=== PATIENT | female | born 1945 | race Caucasian/White ===

== ENCOUNTER 2017-09-27 11:55 | Outpatient (CLI) | payer MEDICARE, OTHER ==
--- NOTE | 2017-09-28 15:34 | Mammography Report ---
DATE OF SERVICE: 09/27/2017 DIGITAL SCREENING MAMMOGRAM: 09/27/2017 CLINICAL INDICATION: A 71-year-old with history of late childbearing, for screening. COMPARISON: 09/2012, 09/2008, 07/2007. TECHNIQUE: Routine CC and MLO projections were obtained of the breasts. FINDINGS: The breasts demonstrate heterogeneously dense fibroglandular parenchyma bilaterally. Coarse and punctate, typically benign calcifications are present. No suspicious masses, clustered microcalcifications, or regions of architectural distortion are identified. IMPRESSION: BENIGN FINDINGS. RECOMMENDATION: ROUTINE ANNUAL SCREENING UNLESS OTHERWISE CLINICALLY INDICATED. BIRADS CATEGORY 2-BENIGN FINDINGS. STANDARD QUALIFYING STATEMENTS: 1. This examination was reviewed with the aid of Computer-Aided Detection (CAD). 2. A negative or benign imaging report should not delay biopsy if clinically suspicious findings are present. Consider surgical consultation if warranted. More than 5% of cancers are not identified by imaging. 3. Dense breasts may obscure an underlying neoplasm. TD: 09/28/2017 16:33
== END 2017-09-27 11:56 | disposition home or self-care (01) ==
LOC: DI.N 11:55
PROVIDERS: ATTEND Nurse Practitioner Gerontology
DX: Z12.31 Encounter for screening mammogram for malignant neoplasm of breast (principal)
CPT/HCPCS: 77067

== ENCOUNTER 2017-11-07 14:56 | Outpatient (CLI) | payer MEDICARE, OTHER | END 2017-11-07 14:57 | disposition EMS.NT | LOC: EMS 14:56 | PROVIDERS: ATTEND Surgery | DX: R41.82 Altered mental status, unspecified (principal); Z72.89 Other problems related to lifestyle ==

== ENCOUNTER 2018-04-25 10:03 | Outpatient (CLI) | payer MEDICARE, OTHER ==
--- NOTE | 2018-04-25 13:21 | Ultrasound Report ---
Procedure Date: 04/25/2018 Accession Number: [id number] / [id number] Procedure: US - Pelvic w/Transvaginal CPT Code: FULL RESULT: EXAM: Pelvic w/Transvaginal DATE: 04/25/2018 11:11 AM CLINICAL HISTORY: ABDOMINAL PAIN,LOWER COMPARISON: None. TECHNIQUE: Realtime transabdominal imaging of the pelvis, with static image documentation. FINDINGS: The examination is limited by the patient's inability to tolerate transvaginal examination. Uterus: 7.5 x 4.3 x 3.2 cm in anteverted position. Multiple calcified fibroids are noted measuring up to 1.6 cm. Endometrium: 5 mm. Cervix: Unremarkable. Right Ovary/Adnexa: 3.1 x 1.8 x 1.8 cm, volume 5 cc. Normal echotexture. Blood flow is present. A 2.7 x 1.6 cm simple appearing cyst is seen associated with the ovary. Left Ovary/Adnexa: 1.8 x 1.8 x 1.0 cm, volume 1.7 cc. Normal echotexture. Blood flow is present. A 1.1 cm simple appearing cyst is seen associated with the ovary. Free Fluid: None. Other: None. IMPRESSION: Simple appearing adnexal cysts measuring up to 2.7 cm. Considered likely to be benign. Recommend annual follow-up to resolution. RADIA
== END 2018-04-25 10:04 | disposition home or self-care (01) ==
LOC: DI 10:03
PROVIDERS: ATTEND Nurse Practitioner Gerontology
DX: N83.292 Other ovarian cyst, left side (principal); N83.291 Other ovarian cyst, right side
CPT/HCPCS: 76830; 76856

== ENCOUNTER 2018-07-11 17:46 | Outpatient (CLI) | payer MEDICARE, OTHER | END 2018-07-11 17:47 | disposition critical access hospital (66) | LOC: EMS 17:46 | PROVIDERS: ATTEND Surgery | DX: R60.0 Localized edema (principal) | CPT/HCPCS: A0425; A0427 ==

== ENCOUNTER 2018-07-11 18:04 | Emergency (ER) | payer MEDICARE, OTHER ==
--- NOTE | 2018-07-11 18:10 | ED Physician Documentation ---
History of Present Illness - Stated complaint Stated Complaint: FACIAL SWELLING - History obtained from History obtained from: Patient - History of Present Illness Timing: Today (72-year-old woman started lisinopril about a week ago, is her fi rst antihypertensive. Today developed left-sided upper and lower lip swelling without retropharyngeal symptoms or shortness of breath.) Review of Systems Constitutional: reports: Reviewed and negative Cardiac: denies: Chest pain / pressure, Palpitations Respiratory: denies: Dyspnea, Cough PD PAST MEDICAL HISTORY - Present Medications Home Medications: Ambulatory Orders Medication Instructions Recorded Confirmed FLUoxetine [PROzac] 40 mg PO DAILY 03/02/13 09/26/14 FLUoxetine [PROzac] 40 mg PO DAILY 07/22/13 09/26/14 Pravastatin Sodium 40 mg PO DAILY 07/22/13 09/26/14 hydroCHLOROthiazide [Hydrodiuril] 12.5 mg PO DAILY #30 capsule 07/11/18 - Allergies Allergies/Adverse Reactions: Allergies Allergy/AdvReac Type Severity Reaction Status Date / Time naproxen sodium * Allergy Mild Rash Verified 07/11/18 18:13 [From Aleve] lisinopril Allergy Edema Verified 07/11/18 18:13 PD ED PE NORMAL - Vitals Vital signs reviewed: Yes - General General: Alert and oriented X 3, No acute distress - HEENT HEENT: PERRL, EOMI, Other (She has marked angioedema of the upper and lower lips on the left side without glossal or retropharyngeal or edema. The airway is wide open and her voice is normal.) - Neck Neck: Supple, no meningeal sign, No bony TTP - Respiratory Respiratory: No respiratory distress, Clear bilaterally - Neuro Neuro: Alert and oriented X 3, Normal speech Results - Vitals Vitals: Vital Signs - 24 hr 07/11/18 07/11/18 07/11/18 18:05 18:15 19:00 Temperature 37.3 C Heart Rate 86 88 88 Respiratory 16 13 15 Rate Blood Pressure 113/82 H 115/98 H O2 Saturation 99 100 97 07/11/18 20:24 Temperature Heart Rate 75 Respiratory 16 Rate Blood Pressure 140/89 H O2 Saturation 98 Oxygen O2 Source [Without Activity] Room air O2 Source Room air - Labs Labs: Laboratory Tests 07/11/18 19:40 Sodium 138 Potassium 4.3 Chloride 99 L Carbon Dioxide 29 Anion Gap 10.0 BUN 19 Creatinine 0.9 Estimated GFR (MDRD) 61 L Glucose 99 Calcium 9.1 PD MEDICAL DECISION MAKING - ED course ED course: 72-year-old woman presents with REAHN inhibitor induced angioedema which is all anterior without retropharyngeal or glossal component. She was observed for several hours with slight improvement and definitely no worsening. 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 Follow-up with your doctor in a few days for recheck and blood pressure check on the new medication.
[2018-07-11 19:55] LABS: CALCIUM 9.1 mg/dL (8.5-10.3); CREATININE 0.9 mg/dL (0.4-1.0)
[2018-07-11 20:37] VITALS: BP 137/86
== END 2018-07-11 20:50 | disposition home or self-care (01) ==
LOC: EDUNIT# → ED 18:04
DX: T78.3XXA Angioneurotic edema, initial encounter (principal); T46.4X5A Adverse effect of angiotensin-converting-enzyme inhibitors, initial encounter
CPT/HCPCS: 36415; 80048; 99283

== ENCOUNTER 2018-07-12 08:56 | Emergency (ER) | payer MEDICARE, OTHER ==
[2018-07-12] MEDS ORDERED: DEXAMETHASONE 10 MG/ML VIAL IV STA (09:26)
[2018-07-12] MEDS ORDERED: FAMOTIDINE 20 MG/50 ML 50 ML IV ONE (09:33)
[2018-07-12] MEDS ORDERED: diphenhydrAMINE INJ 50 MG/ML VIAL IVP STA (09:33)
[2018-07-12] MEDS ORDERED: LORATADINE 10 MG TABLET PO STA (09:40)
--- NOTE | 2018-07-12 09:58 | ED Physician Documentation ---
History of Present Illness - Stated complaint Stated Complaint: ALLERGIC REACTION - Chief complaint Chief Complaint: General - Additonal information Additional information: hx from pt 72 f started lisinopril this week to ED yesterday for angioedema txed with benadryl and steroids obs X 3 hr not worsening no airway involvement dc with new BP med HCTZ her sx are slightly worse today only other possible allergen she can ID is shrimp no soa no CP no GI sx no rash Review of Systems Constitutional: denies: Fever Throat: reports: Other (lip swell). denies: Sore throat Cardiac: denies: Chest pain / pressure GI: denies: Abdominal Pain, Nausea, Vomiting, Diarrhea Skin: denies: Rash Endocrine: denies: Easy bruising / bleeding Immunocompromised: denies: Immunocompromised PD PAST MEDICAL HISTORY - Past Medical History Cardiovascular: None Respiratory: None Endocrine/Autoimmune: None GI: None : None HEENT: None Psych: Depression Musculoskeletal: None, Scoliosis, Chronic back pain Derm: None - Past Surgical History Past Surgical History: Yes General: Cholecystectomy Ortho: Hip replacement - Present Medications Home Medications: Ambulatory Orders Medication Instructions Recorded Confirmed FLUoxetine [PROzac] 40 mg PO DAILY 03/02/13 09/26/14 FLUoxetine [PROzac] 40 mg PO DAILY 07/22/13 09/26/14 Pravastatin Sodium 40 mg PO DAILY 07/22/13 09/26/14 hydroCHLOROthiazide [Hydrodiuril] 12.5 mg PO DAILY #30 capsule 07/11/18 Loratadine [Claritin] 10 mg PO DAILY #3 tablet 07/12/18 predniSONE [Deltasone] 60 mg PO DAILY 3 Days #9 tablet 07/12/18 raNITIdine [Zantac] 150 mg PO BID #7 tablet 07/12/18 - Allergies Allergies/Adverse Reactions: Allergies Allergy/AdvReac Type Severity Reaction Status Date / Time naproxen sodium * Allergy Mild Rash Verified 07/11/18 18:13 [From Parminder] lisinopril Allergy Edema Verified 07/11/18 18:13 - Social History Does the pt smoke?: No Smoking Status: Never smoker Does the pt drink ETOH?: Yes Does the pt have substance abuse?: No - Immunizations Immunizations are current?: No - POLST Patient has POLST: No PD ED PE NORMAL - Vitals Vital signs reviewed: Yes - HEENT HEENT: Other (lipds and perioral region swollne, no tongue or uvula or neck swelling) - Neck Neck: Supple, no meningeal sign - Cardiac Cardiac: RRR - Respiratory Respiratory: No respiratory distress, Clear bilaterally, Other (no wheeze or stridor) - Derm Derm: Normal color, No rash - Neuro Neuro: Alert and oriented X 3 Results - Vitals Vitals: Vital Signs - 24 hr 07/12/18 07/12/18 08:58 10:30 Temperature 36.9 C Heart Rate 89 87 Respiratory 18 15 Rate Blood Pressure 152/104 H 136/85 H O2 Saturation 98 99 Oxygen O2 Source [Without Activity] Room air O2 Source Room air PD MEDICAL DECISION MAKING - ED course ED course: pt observed 2-3 hr and much much better after dex, pepcid and claritin only mild lip swelling now will dc n PO prednisone claritin and zantac X 3 more days Departure - Departure Disposition: 01 Home, Self Care Clinical Impression: Angioedema Qualifiers: Encounter type: initial encounter Qualified Code(s): T78.3XXA - Angioneurotic edema, initial encounter Condition: Good Instructions: ED Angioedema Follow-Up: Hallie Sims ARNP [Primary Care Provider] - Prescriptions: Loratadine [Claritin] 10 mg PO DAILY #3 tablet predniSONE [Deltasone] 60 mg PO DAILY 3 Days #9 tablet raNITIdine [Zantac] 150 mg PO BID #7 tablet Comments: The most likely cause of your allergic reaction is the lisinopril But it could have been the shrimp or any other food soap detergent insect bite etc. Stop the lisinopril and consider yourself allergic to all REHAN inhibitors and angiotensin receptor blockers If you ever have similar symptoms again after stopping these medications, you should be evaluated by an scrap burner to identify the cause Please take the prednisone claritin and zantac for the next three days - next dose of zantac tonight, prednisone and claritin tomorrow morning Of course return if your symptoms get worse again Forms: Activity restrictions
[2018-07-12 16:10] VITALS: BP 135/95
== END 2018-07-12 12:05 | disposition home or self-care (01) ==
LOC: ED 08:56
DX: T78.3XXA Angioneurotic edema, initial encounter (principal); R22.9 Localized swelling, mass and lump, unspecified; Z96.649 Presence of unspecified artificial hip joint
CPT/HCPCS: 96365; 99283; A9270

== ENCOUNTER 2018-07-18 07:16 | Outpatient (CLI) | payer MEDICARE, OTHER ==
[2018-07-18 12:56] LABS: BASOPHILS % (AUTO) 0.6 %; EOSINOPHILS # (AUTO) 0.1 10^3/uL (0.0-0.7); EOSINOPHILS % (AUTO) 1.9 %; HGB - HEMOGLOBIN 12.2 g/dL (12.0-16.0); LYMPHOCYTES # (AUTO) 1.4 10^3/uL (1.5-3.5); LYMPHOCYTES % (AUTO) 26.1 %; MEAN CORPUSCULAR HEMOGLOBIN 33.3 pg (27.0-31.0); MEAN CORPUSCULAR HGB CONC 33.7 g/dL (32.0-36.0); MEAN CORPUSCULAR VOLUME 98.7 fL (81.0-99.0); NEUTROPHILS # (AUTO) 2.7 10^3/uL (1.5-6.6); NEUTROPHILS % (AUTO) 52.4 %; PLT - PLATELET COUNT 274 10^3/uL (130-450); RED BLOOD COUNT 3.67 10^6/uL (4.20-5.40); RED CELL DISTRIBUTION WIDTH 14.1 % (12.0-15.0); WHITE BLOOD COUNT 5.2 x10^3/uL (4.8-10.8)
[2018-07-18 13:24] LABS: ALBUMIN 4.2 g/dL (3.2-5.5); ALBUMIN/GLOBULIN RATIO 1.3 (1.0-2.2); ALKALINE PHOSPHATASE 51 IU/L (42-121); ALT ALANINE AMINOTRANSFERASE 19 IU/L (10-60); AST ASPARTATE AMINOTRANSFERASE 15 IU/L (10-42); BILIRUBIN,TOTAL 0.8 mg/dL (0.2-1.0); BUN - BLOOD UREA NITROGEN 21 mg/dL (6-20); CALCIUM 9.3 mg/dL (8.5-10.3); CARBON DIOXIDE - CO2 30 mmol/L (21-32); CHLORIDE 100 mmol/L (101-111); CHOL/HDL RATIO 2.5 (<4.4); CHOLESTEROL 208 mg/dL; CREATININE 0.6 mg/dL (0.4-1.0); GFR - MDRD 98 (>89); GLUCOSE 82 mg/dL (70-100); HDL CHOLESTEROL 83 mg/dL; LDL CHOLESTEROL,CALCULATED 108 mg/dL; LDL/HDL RATIO 1.3 (<4.4); SODIUM 141 mmol/L (135-145); TOTAL PROTEIN 7.4 g/dL (6.7-8.2); VLDL CHOLESTEROL 17 mg/dL
== END 2018-07-18 07:17 | disposition home or self-care (01) ==
LOC: LAB.N 07:16
PROVIDERS: ATTEND Nurse Practitioner Gerontology
DX: I10 Essential (primary) hypertension (principal); E78.5 Hyperlipidemia, unspecified; Z79.899 Other long term (current) drug therapy
CPT/HCPCS: 36415; 80053; 80061; 83721; 85025

== ENCOUNTER 2018-08-22 14:38 | Observation (INO) | payer MEDICARE, OTHER ==
--- NOTE | 2018-08-22 14:49 | ED Physician Documentation ---
History of Present Illness - Stated complaint Stated Complaint: GLF - Chief complaint Chief Complaint: Ext Problem - Additonal information Additional information: hx from pt 72 f slipped and fell in kitchen (EMS states they see her often for falls and that she drinks wine) Review of Systems Constitutional: denies: Fever Cardiac: denies: Chest pain / pressure Respiratory: denies: Dyspnea, Cough GI: denies: Abdominal Pain, Vomiting, Diarrhea : denies: Dysuria Musculoskeletal: reports: Joint pain. denies: Neck pain Neurologic: denies: Headache, Head injury Endocrine: denies: Easy bruising / bleeding Immunocompromised: denies: Immunocompromised PD PAST MEDICAL HISTORY - Past Medical History Cardiovascular: None Respiratory: None Endocrine/Autoimmune: None GI: None : None HEENT: None Psych: Depression Musculoskeletal: None, Scoliosis, Chronic back pain Derm: None - Past Surgical History Past Surgical History: Yes General: Cholecystectomy Ortho: Hip replacement - Present Medications Home Medications: Ambulatory Orders Medication Instructions Recorded Confirmed FLUoxetine [PROzac] 40 mg PO DAILY 07/22/13 09/26/14 Pravastatin Sodium 40 mg PO DAILY 07/22/13 09/26/14 hydroCHLOROthiazide [Hydrodiuril] 12.5 mg PO DAILY #30 capsule 07/11/18 Sucralfate [Carafate] 1 gm PO ACHS #120 tablet 08/22/18 raNITIdine [Zantac] 150 mg PO BID #60 tablet 08/22/18 - Allergies Allergies/Adverse Reactions: Allergies Allergy/AdvReac Type Severity Reaction Status Date / Time naproxen sodium * Allergy Mild Rash Verified 07/11/18 18:13 [From Aleve] REHAN Inhibitors Allergy Edema Verified 08/22/18 14:45 lisinopril Allergy Edema Verified 07/11/18 18:13 - Social History Does the pt smoke?: No Smoking Status: Never smoker Does the pt drink ETOH?: Yes Does the pt have substance abuse?: No - Immunizations Immunizations are current?: No - POLST Patient has POLST: No PD ED PE NORMAL - Vitals Vital signs reviewed: Yes - HEENT HEENT: Atraumatic, PERRL - Neck Neck: No bony TTP - Cardiac Cardiac: RRR - Respiratory Respiratory: No respiratory distress, Clear bilaterally - Abdomen Abdomen: Non tender - Extremities Extremities: Other (TTP lateral R hip and held slightly flexed and int rotated, + pulses, nl motor and sensation) - Neuro Neuro: Alert and oriented X 3, No motor deficit, No sensory deficit Results - Vitals Vitals: Vital Signs - 24 hr 08/22/18 08/22/18 08/22/18 14:39 15:29 15:35 Temperature 37 C 36.5 C Heart Rate 95 99 92 Respiratory 20 28 H 16 Rate Blood Pressure 139/88 H 161/98 H 161/98 H O2 Saturation 97 98 97 08/22/18 08/22/18 08/22/18 15:40 15:50 15:55 Temperature Heart Rate 92 88 88 Respiratory 16 18 Rate Blood Pressure 160/88 H 156/102 H O2 Saturation 99 100 100 08/22/18 08/22/18 08/22/18 16:01 16:07 16:23 Temperature Heart Rate 86 89 90 Respiratory 18 15 12 Rate Blood Pressure 165/101 H 162/96 H O2 Saturation 100 95 98 08/22/18 08/22/18 16:24 17:25 Temperature Heart Rate 97 Respiratory 18 Rate Blood Pressure 168/95 H 143/93 H O2 Saturation 96 Oxygen O2 Source [] Room air O2 Source Room air Oxygen Flow Rate 2 - Labs Labs: Laboratory Tests 08/22/18 08/22/18 16:50 16:50 WBC 10.7 RBC 4.27 Hgb 13.7 Hct 40.7 MCV 95.4 MCH 32.1 H MCHC 33.7 RDW 13.5 Plt Count 446 MPV 8.1 Neut # (Auto) 9.3 H Lymph # (Auto) 0.8 L Stoddard # (Auto) 0.6 Eos # (Auto) 0.0 Baso # (Auto) 0.0 Absolute Nucleated RBC 0.00 Nucleated RBC % 0.0 Sodium 142 Potassium 3.3 L Chloride 101 Carbon Dioxide 30 Anion Gap 11.0 BUN 18 Creatinine 0.5 Estimated GFR (MDRD) 121 Glucose 121 H Calcium 8.6 Total Bilirubin 0.4 AST 25 ALT 22 Alkaline Phosphatase 56 Total Protein 7.6 Albumin 4.2 Globulin 3.4 Albumin/Globulin Ratio 1.2 Lipase 27 - Rads (name of study) R hip 1 Radiology: See rad report (dislocated no fx) R hip 2 Radiology: See rad report (reduced no fx) PD MEDICAL DECISION MAKING - ED course ED course: dislocated prosthetic R hip pt NPO since 11 was drinking cranberry juice and wind eand chicken fingers before that mallapati 2 on exam no dentures no contraindications to propofol consented fro both sedation and reduction sedation with morphine and propofol I attempted reduction under good sedation several times s success Dr Tobin came to assist and after a few attempts was able to successfully reduce pt felt better was planning to dc with walker toe touch wt bearing, ABD pillow for sleeping and pt has mary ellen toilet seat to prevent hip flexion, fup Dr Conrad Cuba and neighbors to watch over her tonight but then she vomited brownish fluid and nurse tested it and it was gastroccult + already had given pepcid for nausea and GERD sx prior added on blood work and more zofran all fine pt feeling better up and about with walker tolerating PO will dc Departure - Departure Disposition: 01 Home, Self Care Clinical Impression: Upper GI bleed Hip dislocation, right Qualifiers: Encounter type: initial encounter Qualified Code(s): S73.004A - Unspecified dislocation of right hip, initial encounter Condition: Good Instructions: ED Bleed UGI Stable Follow-Up: Garth Guillaume MD [Provider Admit Priv/Credential] - Hallie Sims ARNP [Primary Care Provider] - Prescriptions: raNITIdine [Zantac] 150 mg PO BID #60 tablet Sucralfate [Carafate] 1 gm PO ACHS #120 tablet Comments: The hip is back in place Please use the walker - you may ambulate with toe touch weight bearing using the walker for assistance When you sleep please use the pillow we gave you to prevent crossing your legs. And use your raised toilet seat and higher chairs in your house - sitting on low furniture will flex you hip too far and might dislocate the hip again Tylenol as needed for the pain Follow up with Dr Cuba Also you threw up some blood in the ER There are many possible causes for this - from gastritis to an ulcer or even varices which are swollen veins in your throat. Right now your blood count is fine and I think it is safe for you to go home Take the zantac and carafate as I prescribed Cut down on your alcohol use. Also no motrin or other NSAIDs and no spicy food Follow up with your MD tomorrow for a repeat blood count And call the surgeon office to set up a scope of your stomach
[2018-08-22] MEDS ORDERED: PROPOFOL 200 MG/20 ML VIAL IVP STA (15:18)
[2018-08-22] MEDS ORDERED: ONDANSETRON 4 MG/2 ML VIAL IVP STA ×2 (15:18→16:34)
[2018-08-22] MEDS ORDERED: MORPHINE 2 MG/ML CARPUJECT IVP STA ×2 (15:18→15:36)
--- NOTE | 2018-08-22 15:32 | XRAY Report ---
Reason: fall R hip pain and int rotation Procedure Date: 08/22/2018 Accession Number: [id number] / [id number] Procedure: XR - Hip w/Pelvis 2-3V RT CPT Code: FULL RESULT: EXAM: RIGHT HIP AND PELVIS RADIOGRAPHY EXAM DATE: 08/22/2018 03:12 PM. HISTORY: Fall, right hip pain and internal rotation. COMPARISONS: 03/02/2013 5:02 PM. TECHNIQUE: 1 view of the pelvis and 1 view of the hip. FINDINGS: Bones: The patient is status post bilateral hip replacement and status post spinal fusion which is incompletely visualized. No acute fractures identified. The right hip prosthesis is anterosuperiorly subluxed. IMPRESSION: Dislocated right total hip arthroplasty. RADIA
[2018-08-22] MEDS ORDERED: FAMOTIDINE 20 MG/50 ML 50 ML IV ONE (15:36)
[2018-08-22] MEDS ORDERED: MORPHINE 2 MG/ML CARPUJECT ONE (15:39)
--- NOTE | 2018-08-22 16:11 | XRAY Report ---
Reason: post reduction Procedure Date: 08/22/2018 Accession Number: [id number] / [id number] Procedure: XR - Hip w/Pelvis 1V RT CPT Code: FULL RESULT: EXAM: RIGHT HIP AND PELVIS RADIOGRAPHY EXAM DATE: 08/22/2018 04:00 PM. HISTORY: Post reduction. COMPARISONS: Hip with pelvis 2-3 views, right 08/22/2018 2:59 PM. Hip 2 view left 03/02/2013 3:54 PM. TECHNIQUE: 1 view of the pelvis and 1 view of the hip. FINDINGS: Bones: Normal. No fracture or bone lesion. Joints: Successful reduction of the prosthetic right hip dislocation. Bones are in anatomic alignment. Bilateral total hip replacements. Left third through fifth lumbar pedicle screws with intervening consuelo. Soft Tissues: Normal. No soft tissue swelling. IMPRESSION: Successful reduction prosthetic right hip. RADIA
[2018-08-22] MEDS ORDERED: ONDANSETRON 4 MG/2 ML VIAL ONE (16:36)
[2018-08-22 16:58] LABS: BASOPHILS % (AUTO) 0.3 %; HGB - HEMOGLOBIN 13.7 g/dL (12.0-16.0); LYMPHOCYTES # (AUTO) 0.8 10^3/uL (1.5-3.5); LYMPHOCYTES % (AUTO) 7.3 %; MEAN CORPUSCULAR HEMOGLOBIN 32.1 pg (27.0-31.0); MEAN CORPUSCULAR HGB CONC 33.7 g/dL (32.0-36.0); MEAN CORPUSCULAR VOLUME 95.4 fL (81.0-99.0); MEAN PLATELET VOLUME 8.1 fL (7.9-10.8); MONOCYTES # (AUTO) 0.6 10^3/uL (0.0-1.0); MONOCYTES % (AUTO) 5.4 %; NEUTROPHILS # (AUTO) 9.3 10^3/uL (1.5-6.6); PLT - PLATELET COUNT 446 10^3/uL (130-450); RED BLOOD COUNT 4.27 10^6/uL (4.20-5.40); RED CELL DISTRIBUTION WIDTH 13.5 % (12.0-15.0); WHITE BLOOD COUNT 10.7 x10^3/uL (4.8-10.8)
[2018-08-22 17:11] LABS: ALBUMIN 4.2 g/dL (3.2-5.5); ALBUMIN/GLOBULIN RATIO 1.2 (1.0-2.2); BILIRUBIN,TOTAL 0.4 mg/dL (0.2-1.0); CALCIUM 8.6 mg/dL (8.5-10.3); CREATININE 0.5 mg/dL (0.4-1.0); TOTAL PROTEIN 7.6 g/dL (6.7-8.2)
[2018-08-22] MEDS ORDERED: PROMETHAZINE INJ 25 MG in SODIUM CHLORIDE 0.9% 50 ML IV STA (18:36)
[2018-08-22] MEDS ORDERED: PROMETHAZINE INJ 12.5 MG in SODIUM CHLORIDE 0.9% 50 ML IV STA (19:09)
[2018-08-22] MEDS ORDERED: ONDANSETRON 4 MG/2 ML VIAL IVP PRN (21:25)
[2018-08-22] MEDS ORDERED: PROMETHAZINE 25 MG/1 ML VIAL IM PRN (21:25)
[2018-08-22] MEDS ORDERED: HYDROmorphone 0.5 MG/0.5 ML SYRINGE IVP PRN (21:25)
[2018-08-22] MEDS ORDERED: ACETAMINOPHEN 325 MG TABLET PO PRN (21:25)
[2018-08-22] MEDS ORDERED: ZOLPIDEM 5 MG TABLET PO PRN (21:25)
[2018-08-22] MEDS ORDERED: PROCHLORPERAZINE 10 MG/2 ML VIAL IVP PRN (21:25)
--- NOTE | 2018-08-22 22:24 | HISTORY & PHYSICAL EXAMINATION ---
Chief Complaint - Chief Complaint Chief Complaint: Intractable nausea and vomiting History of Present Illness - Admitted From Admitted From:: Emergency department - History Obtained From Records Reviewed: Emergency department History obtained from: Patient and ED physician Exam Limitations: None - History of Present Illness HPI Comment/Other: Patient is a 72-year-old female with past medical history of hyperlipidemia, hyp ertension, and apparently a remote history of an irregular heart rhythm, who is also had bilateral hip replacement surgery in the past who slipped on a slippery floor in her home today and landed on her right hip sustaining a right hip dislocation. She was able to crawl over to reach for a single dose of oxycodone that she had left over from something else. She called EMS who brought her to the emergency room for evaluation.She had a successful right hip dislocation with the assistance of propofol for sedation, and a couple doses of morphine IV.She was otherwise ready for discharge when she started to develop nausea and vomiting with some coffee-ground emesis which did not respond to 2 doses of Zofran and 2 doses of Phenergan. Because of this we were asked to admit the patient into ob servation status to evaluate the nausea and vomiting. Patient was adamant that she did not hit her head on the fall, and she did verify this with the ED physician multiple times who reported to me that she did not have any high suspicion for head trauma.Patient denies any other neurological changes such as blurry vision, headache, slurred speech, weakness, etc. 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 Neighbors help when needed. 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 - Substance History Use: Uses substance without health or social issues: Tobacco (quit 20 yrs ago, 20 pack year hx) - POLST Patient has POLST: No Meds/Allgy - Home Medications Home Medications: Ambulatory Orders Medication Instructions Recorded Confirmed FLUoxetine [PROzac] 40 mg PO DAILY 07/22/13 09/26/14 Pravastatin Sodium 40 mg PO DAILY 07/22/13 09/26/14 hydroCHLOROthiazide [Hydrodiuril] 12.5 mg PO DAILY #30 capsule 07/11/18 Sucralfate [Carafate] 1 gm PO ACHS #120 tablet 08/22/18 raNITIdine [Zantac] 150 mg PO BID #60 tablet 08/22/18 - Allergies Allergies/Adverse Reactions: Allergies Allergy/AdvReac Type Severity Reaction Status Date / Time naproxen sodium * Allergy Mild Rash Verified 07/11/18 18:13 [From Aleve] REHAN Inhibitors Allergy Edema Verified 08/22/18 14:45 lisinopril Allergy Edema Verified 07/11/18 18:13 Review of Systems - Constitutional Constitutional: denies: Fatigue, Chills - Eyes Eyes: denies: Blurred vision - Cardiovascular Cariovascular: reports: Irregular heart rate. denies: Chest pain, Lightheadedness, Syncope, Exertional dyspnea, Orthopnea - Respiratory Respiratory: denies: SOB at rest - Gastrointestinal Gastrointestinal: reports: Abdominal pain, Nausea, Vomiting, Coffee grounds emesis - Genitourinary Genitourinary: denies: Dysuria - Musculoskeletal Musculoskeletal: reports: Limited range of motion, Joint pain - Neurological Neurological: reports: Headache, Dizziness - Psychiatric Psychiatric: reports: Depression Prior Level of Functionality: Independent Exam - Vital Signs Reviewed Vital Signs: Yes Vital Signs: Vital Signs x48h Temp Pulse Resp BP Pulse Ox 08/22/18 17:25 97 18 143/93 H 96 08/22/18 16:24 168/95 H 08/22/18 16:23 90 12 98 08/22/18 16:07 89 15 162/96 H 95 08/22/18 16:01 86 18 165/101 H 100 08/22/18 15:55 88 18 156/102 H 100 08/22/18 15:50 88 100 08/22/18 15:40 92 16 160/88 H 99 08/22/18 15:35 36.5 C 92 16 161/98 H 97 08/22/18 15:29 99 28 H 161/98 H 98 08/22/18 14:39 37 C 95 20 139/88 H 97 Vital Signs - 24 hr 08/22/18 08/22/18 08/22/18 14:39 15:29 15:35 Temperature 37 C 36.5 C Heart Rate 95 99 92 Heart Rate [ Brachial] Respiratory 20 28 H 16 Rate Blood Pressure 139/88 H 161/98 H 161/98 H Blood Pressure [Right Brachial artery] O2 Saturation 97 98 97 08/22/18 08/22/18 08/22/18 15:40 15:50 15:55 Temperature Heart Rate 92 88 88 Heart Rate [ Brachial] Respiratory 16 18 Rate Blood Pressure 160/88 H 156/102 H Blood Pressure [Right Brachial artery] O2 Saturation 99 100 100 08/22/18 08/22/18 08/22/18 16:01 16:07 16:23 Temperature Heart Rate 86 89 90 Heart Rate [ Brachial] Respiratory 18 15 12 Rate Blood Pressure 165/101 H 162/96 H Blood Pressure [Right Brachial artery] O2 Saturation 100 95 98 08/22/18 08/22/18 08/22/18 16:24 17:25 21:52 Temperature 36.6 C Heart Rate 97 Heart Rate [ 105 H Brachial] Respiratory 18 20 Rate Blood Pressure 168/95 H 143/93 H Blood Pressure 150/110 H [Right Brachial artery] O2 Saturation 96 99 08/22/18 22:40 Temperature Heart Rate Heart Rate [ Brachial] Respiratory Rate Blood Pressure Blood Pressure 167/99 H [Right Brachial artery] O2 Saturation Oxygen O2 Source [Without Activity] Room air O2 Source Room air Oxygen Flow Rate 2 - Physical Exam Cardiovascular: positive: Irregularly irregular Conclusion/Plan - Problem List (1) Intractable nausea and vomiting Conclusion/Plan: This is likely secondary to medications given the amount of narcotics and sedating medications required for the pain control and the hip reduction. Her labs are unremarkable. Abdominal imaging has not been performed however, and she is complaining of generalized abdominal pain which is probably just related to the vomiting. I did order an ultrasound of the abdomen for tomorrow morning and if she is still having abdominal pain by then I think an ultrasound is warranted otherwise I do not see a reason for it emergently overnight. In the meantime we will maintain fluid hydration, provide antiemetics, and expect with washout of narcotics and sedating medication that this should improve and patient will likely be able to discharge home tomorrow. Did have a irregular irregular rhythm on exam for me that apparently was not present at the time of the initial exam by ED physician. I will get an echocardiogram in the morning tomorrow and follow-up accordingly. (2) Coffee ground emesis Conclusion/Plan: Likely related to the patient's regular alcohol consumption. Possible esophageal varices, less likely Evelyn-Salguero tear. Given that she is clinically stable with a normal hemoglobin and hematocrit with only mild tachycardia which is likely related to the dehydration from the vomiting, I do not think she needs an urgent EGD and depending on how she does in the morning may warrant a consult with surgery for EGD versus recommendation for outpatient EGD if emesis has resolved. In the meantime I will keep the patient n.p.o. after midnight in case the EGD is needed. (3) Hip dislocation, right Conclusion/Plan: Successful reduction in the emergency room with discharge instructions in the patient's chart. We will try to avoid narcotics as much as possible for pain control. Qualifiers: Encounter type: initial encounter Qualified Code(s): S73.004A - Unspecified dislocation of right hip, initial encounter (4) Alcohol abuse Conclusion/Plan: Patient states about 3 drinks of alcohol per night which are glasses of wine and denies any other hard liquor of alcohol products. She is potentially at risk for withdrawal symptoms however right now she is relatively lethargic on exam, and other than the tachycardia which is likely related to dehydration is not showing any evidence of alcohol withdrawal. We will watch closely and if necessary Isai protocol can be initiated but it is likely she will be discharged before this. - Lab Results Lab results reviewed: Yes Pedro Pablo Bones: 08/22/18 16:50 08/22/18 16:50 - Diagnostic Imaging Results Diagnostic Imaging Results: positive: Final report reviewed - EKG Results EKG Interpreted Independently: Yes EKG Comparison: No prior EKG Core Measures - Anticipated LOS I expect patient to be DC'd or transferred within 96 hours.: Yes - DVT/VTE - Prophylaxis VTE/DVT Device ordered at admit?: Yes
[2018-08-22] MEDS: LACTATED RINGERS 1,000 ML IV SCH (22:59)
[2018-08-23] MEDS: SODIUM CHLORIDE FLUSH 0.9% 10 ML SYRINGE IVP SCH ×3 (00:40→17:44)
[2018-08-23 02:21] LABS: BILIRUBIN,URINE NEGATIVE (NEGATIVE); GLUCOSE, URINE (UA) NEGATIVE (NEGATIVE); KETONES,URINE (UA) NEGATIVE (NEGATIVE); LEUKOCYTE ESTERASE, URINE NEGATIVE (NEGATIVE); NITRITE,URINE POSITIVE (NEGATIVE); OCCULT BLOOD,URINE TRACE-INTA (NEGATIVE); PROTEIN,URINE TRACE mg/dL (NEGATIVE); UROBILINOGEN,URINE 0.2 (NORMAL) E.U./dL (NORMAL)
[2018-08-23 02:23] LABS: CLARITY,URINE HAZY (CLEAR)
[2018-08-23 02:27] LABS: BACTERIA,URINE Many /HPF (None Seen); RBC,URINE 0-5 /HPF (0-5); SQUAMOUS EPITHELIAL CELL,UR FEW Squamous (<= Few)
--- NOTE | 2018-08-23 02:45 | Ultrasound Report ---
Reason: abdominal pain Procedure Date: 08/23/2018 Accession Number: [id number] / [id number] Procedure: US - Abdomen Complete CPT Code: FULL RESULT: EXAM: ABDOMEN ULTRASOUND EXAM DATE: 08/23/2018 01:35 AM. CLINICAL HISTORY: Abdominal pain. COMPARISON: None. TECHNIQUE: Real-time scanning was performed with static images obtained. FINDINGS: Patient body habitus compromises exam sensitivity and specificity. Liver: Normal in size and echotexture as visualized. 15.7 cm. Main portal vein flow: Hepatopetal. Gallbladder: Normal. No stones, wall thickening, or sonographic Mckeon's sign. Biliary System: Common bile duct measures 4.0-5.0 mm. No intrahepatic or extrahepatic ductal dilatation. Pancreas: Obscured by overlying structures. Kidneys: Right: 10.0 cm longitudinally. Normal. No contour-deforming mass, stones, or hydronephrosis. Left: 10.8 cm longitudinally. Suspect left-sided extrarenal pelvis. No contour-deforming mass, stones, or hydronephrosis. Spleen: 6.0 cm. Small size of the spleen. No suspicious lesions demonstrated. Aorta and Inferior Vena Cava: Unremarkable. Other: None. IMPRESSION: No gallstones, cholecystitis, or biliary dilation. RADIA
[2018-08-23 05:45] LABS: HGB - HEMOGLOBIN 12.2 g/dL (12.0-16.0); MEAN CORPUSCULAR HEMOGLOBIN 32.2 pg (27.0-31.0); MEAN CORPUSCULAR HGB CONC 33.6 g/dL (32.0-36.0); MEAN PLATELET VOLUME 8.2 fL (7.9-10.8); RED BLOOD COUNT 3.79 10^6/uL (4.20-5.40); RED CELL DISTRIBUTION WIDTH 13.6 % (12.0-15.0); WHITE BLOOD COUNT 8.9 x10^3/uL (4.8-10.8)
[2018-08-23] MEDS: LACTATED RINGERS 1,000 ML IV SCH ×2 (05:55→15:18)
[2018-08-23 06:02] LABS: CALCIUM 8.3 mg/dL (8.5-10.3); CREATININE 0.7 mg/dL (0.4-1.0)
[2018-08-23] MEDS: SODIUM CHLORIDE FLUSH 0.9% 10 ML SYRINGE IVP PRN ×2 (06:07→06:18)
[2018-08-23] MEDS: PANTOPRAZOLE 40 MG VIAL IVP SCH ×2 (06:07→17:43)
[2018-08-23] MEDS ORDERED: BENZOCAINE/MENTHOL LOZENGE MM PRN (06:21)
[2018-08-23] MEDS ORDERED: CARBOXYMETHYLCELLULOSE OPHTH DROPS EACHEYE PRN (07:01)
[2018-08-23] MEDS ORDERED: SODIUM CHLORIDE 0.9% 500 ML IV ONE (08:54)
[2018-08-23] MEDS ORDERED: POLYETHYLENE GLYCOL 3350 17 GM PACKET PO SCH (09:00)
[2018-08-23] MEDS ORDERED: NITROFURANTOIN MACRO 100 MG CAPSULE PO SCH ×2 (14:00→17:55)
[2018-08-23 14:17] LABS: HGB - HEMOGLOBIN 11.2 g/dL (12.0-16.0)
--- NOTE | 2018-08-23 17:02 | Discharge Plan ---
Discharge Plan Disposition: 01 Home, Self Care Condition: Fair Prescriptions: Nitrofurantoin [Macrobid] 100 mg PO BID #8 capsule Pantoprazole [Protonix] 40 mg PO DAILY #30 tablet Diet: Cardiac Activity Restrictions: Activity as Tolerated Shower Restrictions: No Driving Restrictions: No Instruction Topics: ED Bleed UGI Stable Additional Instructions or Follow Up instructions: The hip is back in place Please use the walker - you may ambulate with toe touch weight bearing using the walker for assistance When you sleep please use the pillow we gave you to prevent crossing your legs. And use your raised toilet seat and higher chairs in your house - sitting on low furniture will flex you hip too far and might dislocate the hip again Tylenol as needed for the pain Follow up with Dr Cuba You were found to have a urinary tract infection. Please take the antibiotic Macrobid until all the pills are done. Also you threw up some blood in the ER There are many possible causes for this - from gastritis to an ulcer or even varices which are swollen veins in your throat. Right now your blood count is fine and I think it is safe for you to go home Take the Protonix as prescribed Cut down on your alcohol use. Also no motrin or other NSAIDs and no spicy food Follow up with your MD tomorrow for a repeat blood count And call the surgeon office to set up a scope of your stomach No Smoking: If you smoke, Please STOP! Call for help. Follow-up with: Hallie Sims ARNP [Primary Care Provider] - Garth Guillaume MD [Provider Admit Priv/Credential] -
[2018-08-23 18:14] VITALS: BP 128/70
--- NOTE | 2018-08-23 19:59 | DISCHARGE SUMMARY ---
Physician: Leah Adler MD DATE OF ADMISSION: 08/22/2018 DATE OF DISCHARGE: 08/23/2018 HISTORY OF PRESENT ILLNESS: This is a 72-year-old white female with a history of heavy alcohol use (3 drinks of wine per night), history of bilateral hip replacements, who slipped on a slippery floor and landed on her right hip, sustaining a right hip dislocation. She was seen in the emergency room. She had taken oxycodone for her symptoms and also had sedation to have reduction of the hip dislocation, which was successfully done in the ER. The patient developed nausea and vomiting and had intractable vomiting while in the emergency room and had one episode of coffee-ground emesis. She was placed in Observation for management of her incessant nausea and vomiting and for hydration. HOSPITAL COURSE AND DISCHARGE DIAGNOSES 1. Intractable nausea and vomiting. With antiemetics her symptoms resolved. She was kept on bowel rest overnight and then her diet was slowly advanced. She was able to tolerate solid foods. There was no further hematemesis and a stable hemoglobin on followup. She was discharged on Protonix empirically and advised to decrease her alcohol intake, use no NSAIDs and to be seen by surgery for possible EGD; the later recommendation came from the emergency room doctor even before observation overnight. 2. Urinary tract infection. The patient spiked a fever of 37.8, and a urinalysis was done that showed high leukocyte esterase, high nitrites, many bacteria. She was started on Macrobid and tolerated this pill with no nausea. She was discharged to complete a 5-day course of Macrobid b.i.d. 3. Dislocated hip on the right. This was successfully managed. She was only requesting Tylenol for pain control. LABORATORY AND IMAGING: Reviewed and summarized above. ALLERGIES: NAPROSYN, REHAN INHIBITORS. MEDICATIONS AT DISCHARGE: 1. Vitamin C 500 mg daily. 2. Vitamin D3 1000 units daily. 3. Iron 240 mg daily. 4. Prozac 40 mg daily. 5. Pravastatin 40 mg daily. 6. HCTZ 12.5 mg daily 7. Macrobid 100 mg b.i.d. for 4 more days. 8. Protonix 40 mg daily. CONDITION AT DISCHARGE: Stable. PHYSICAL EXAMINATION VITAL SIGNS: Blood pressure 128/70, heart rate 78 in sinus rhythm, afebrile and room air saturation 97%. HEENT: Moist oral mucosa. She appears fatigued. NECK: Without JVD or carotid bruits. CHEST: Clear. HEART: Sounds normal. No murmur. ABDOMEN: Soft, nontender, normal bowel sounds. No hepatomegaly. EXTREMITIES: Without edema. NEUROLOGIC: Intact. FOLLOWUP: She was advised to see her PCP within the next week and to call for a surgery clinic appointment. CODE STATUS: FULL CODE. Time required to complete her entire discharge, chart review, patient education, dictation: 30 minutes. cc: Annabel Gandhi TD: 08/23/2018 19:41 MTDD
== END 2018-08-23 18:14 | disposition home or self-care (01) ==
LOC: EDUNIT# → ED 14:38 → OBS 21:25
PROVIDERS: ADMIT Family Medicine Sports Medicine; ATTEND Internal Medicine
DX: K92.0 Hematemesis (principal); N39.0 Urinary tract infection, site not specified; B96.89 Other specified bacterial agents as the cause of diseases classified elsewhere; S73.004A Unspecified dislocation of right hip, initial encounter; T84.020A Dislocation of internal right hip prosthesis, initial encounter; W01.0XXA Fall on same level from slipping, tripping and stumbling without subsequent striking against object, initial encounter; Z91.81 History of falling; Y92.000 Kitchen of unspecified non-institutional (private) residence as the place of occurrence of the external cause; I10 Essential (primary) hypertension; E86.0 Dehydration; E78.5 Hyperlipidemia, unspecified; F10.10 Alcohol abuse, uncomplicated; Z96.643 Presence of artificial hip joint, bilateral; Z87.891 Personal history of nicotine dependence
CPT/HCPCS: 27266; 36415; 73501; 73502; 76700; 80048; 80053; 81001; 83690; 85014; 85018; 85025; 85027; 87086; 87181; 93005; 93306; 94770; 96361; 96365; 96366; 96367; 96375; 96376; 99284; A9270; G0378; J1170; J7040; J7120; 81003; 99283

== ENCOUNTER 2018-11-06 09:02 | Outpatient (CLI) | payer MEDICARE, OTHER | END 2018-11-06 23:59 | disposition home or self-care (01) | LOC: RT.N 09:02 | PROVIDERS: ATTEND Nurse Practitioner Gerontology | DX: R94.31 Abnormal electrocardiogram [ECG] [EKG] (principal) ==

== ENCOUNTER 2019-03-08 10:30 | Outpatient (CLI) | payer MEDICARE, OTHER | END 2019-03-08 10:31 | disposition critical access hospital (66) | LOC: EMS 10:30 | PROVIDERS: ATTEND Surgery | DX: R46.4 Slowness and poor responsiveness (principal); S01.111A Laceration without foreign body of right eyelid and periocular area, initial encounter; X58.XXXA Exposure to other specified factors, initial encounter; Z72.89 Other problems related to lifestyle | CPT/HCPCS: A0425; A0429 ==

== ENCOUNTER 2019-03-08 10:45 | Emergency (ER) | payer MEDICARE, OTHER ==
--- NOTE | 2019-03-08 11:26 | ED Physician Documentation ---
History of Present Illness - Stated complaint Stated Complaint: ETOH / FALL - Chief complaint Chief Complaint: General - History obtained from History obtained from: Patient - History of Present Illness Timing: Prior to arrival - Additonal information Additional information: Patient is a 73-year-old female with history of hypertension, hypercholesterolemia presenting via EMS after reported fall. Neighbors called EMS after patient was found in her home on the ground. Patient admits to falling earlier today and denies any particular injuries including striking of head, although she has dried blood on her right eyebrow. Patient denies loss of consciousness. She also denies headache, neck pain, back pain, vision changes, chest or rib pain, difficulty breathing, abdominal pain, nausea, vomiting, urinary changes, stool changes. Patient denies any injuries from today, as well as any symptoms over the last several weeks including fever or chills. Patient does admit to alcohol use, specifically wine, but does not further quantify. Patient denies other recreational drugs and states she is compliant with her medications. No known anticoagulation. No other improving or worsening factors noted. Review of Systems Constitutional: denies: Fever, Chills Eyes: denies: Loss of vision Nose: denies: Epistaxis Throat: denies: Dental pain / toothache Cardiac: denies: Chest pain / pressure Respiratory: denies: Dyspnea GI: denies: Abdominal Pain, Nausea, Vomiting, Diarrhea : denies: Dysuria Skin: denies: Laceration (s) Musculoskeletal: denies: Neck pain, Back pain, Extremity pain Neurologic: reports: Head injury. 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 : None HEENT: None Psych: Depression Musculoskeletal: None, Scoliosis, Chronic back pain Derm: None - Past Surgical History Past Surgical History: Yes General: Cholecystectomy Ortho: Hip replacement, Shoulder arthroplasty (left, planning for R), Spine surgery (L3-5 fusion) - Present Medications Home Medications: Ambulatory Orders Medication Instructions Recorded Confirmed FLUoxetine [PROzac] 40 mg PO DAILY 07/22/13 08/23/18 Pravastatin Sodium 40 mg PO DAILY 07/22/13 08/23/18 hydroCHLOROthiazide [Hydrodiuril] 12.5 mg PO DAILY #30 capsule 07/11/18 08/23/18 Ascorbic Acid [Vitamin C] 500 mg PO DAILY 08/23/18 08/23/18 Cholecalciferol (Vitamin D3) 1,000 unit PO DAILY 08/23/18 08/23/18 [Vitamin D3] Ferrous Gluconate 240 mg PO DAILY 08/23/18 08/23/18 Nitrofurantoin [Macrobid] 100 mg PO BID #8 capsule 08/23/18 Pantoprazole [Protonix] 40 mg PO DAILY #30 tablet 08/23/18 - Allergies Allergies/Adverse Reactions: Allergies Allergy/AdvReac Type Severity Reaction Status Date / Time naproxen sodium * Allergy Mild Rash Verified 03/08/19 11:43 [From Aleve] REHAN Inhibitors Allergy Edema Verified 03/08/19 11:43 lisinopril Allergy Edema Verified 03/08/19 11:43 - Social History Does the pt smoke?: No Smoking Status: Former smoker Does the pt drink ETOH?: Yes Does the pt have substance abuse?: No - Immunizations Immunizations are current?: No - POLST Patient has POLST: No PD ED PE NORMAL - Vitals Vital signs reviewed: Yes - General General: Alert and oriented X 3, No acute distress, Well developed/nourished, Other (Smells of alcohol, poor hygiene) - HEENT HEENT: Atraumatic (Atraumatic except for dried blood of unknown source on right eyebrow. No periorbital swelling or ecchymosis, facial bone instability or tenderness, bowel sounds, raccoon eyes, intraoral trauma, or epistaxis.), PERRL, EOMI (No nystagmus. Gross visual acuity intact.), Moist mucous membranes, Pharynx benign, Dentition benign - Neck Neck: No bony TTP - Cardiac Cardiac: RRR, No murmur - Respiratory Respiratory: No respiratory distress, Clear bilaterally - Abdomen Abdomen: Normal bowel sounds, Soft, Non tender, Non distended - Derm Derm: Normal color, Warm and dry, No rash - Extremities Extremities: No deformity, No tenderness to palpate, No edema - Neuro Neuro: Alert and oriented X 3, No motor deficit, No sensory deficit - Psych Psych: Normal mood, Normal affect, Other (Normal mood and affect, although smells of alcohol and appears slightly intoxicated) Results - Vitals Vitals: Vital Signs - 24 hr 03/08/19 03/08/19 03/08/19 11:21 13:42 14:24 Temperature 37.4 C Heart Rate 88 89 87 Respiratory 16 20 18 Rate Blood Pressure 105/65 127/73 128/74 O2 Saturation 98 96 99 Oxygen O2 Source [] Room air O2 Source Room air - EKG (time done) 1136 Rate: Rate (enter#) (93) Rhythm: NSR Intervals: Prolonged QT, RBBB Ischemia: T wave inversion Other comments: Other comments (Similar to previous EKG in 2018. Echocardiogram in 2018.) Compare to prior EKG: Unchanged from prior EKG - Labs Labs: Laboratory Tests 03/08/19 03/08/19 03/08/19 11:16 11:16 11:16 WBC 7.9 RBC 4.25 Hgb 13.1 Hct 41.0 MCV 96.5 MCH 30.8 MCHC 32.0 RDW 14.1 Plt Count 443 MPV 9.3 Neut # (Auto) 5.7 Lymph # (Auto) 1.6 [place] # (Auto) 0.5 Eos # (Auto) 0.0 Baso # (Auto) 0.0 Absolute Nucleated RBC 0.00 Nucleated RBC % 0.0 Sodium 140 Potassium 3.7 Chloride 96 L Carbon Dioxide 25 Anion Gap 19.0 H BUN 14 Creatinine 0.6 Estimated GFR (MDRD) 98 Glucose 108 H Calcium 8.8 Total Bilirubin 0.8 AST 16 ALT 19 Alkaline Phosphatase 67 Troponin I Total Protein 7.6 Albumin 3.9 Globulin 3.7 Albumin/Globulin Ratio 1.1 Lipase 28 TSH 0.82 Urine Color Urine Clarity Urine pH Ur Specific [place] Urine Protein Urine Glucose (UA) Urine Ketones Urine Occult Blood Urine Nitrite Urine Bilirubin Urine Urobilinogen Ur Leukocyte Esterase Ur Microscopic Review Urine Culture Comments Salicylates < 6.0 Urine Opiates Screen Ur Oxycodone Screen Urine Methadone Screen Ur Propoxyphene Screen Acetaminophen < 10 L Ur Barbiturates Screen Ur Tricyclics Screen Ur Phencyclidine Scrn Ur Amphetamine Screen U Methamphetamines Scrn U Benzodiazepines Scrn Urine Cocaine Screen U Cannabinoids Screen Ethyl Alcohol 366.6 03/08/19 03/08/19 11:16 11:16 WBC RBC Hgb Hct MCV MCH MCHC RDW Plt Count MPV Neut # (Auto) Lymph # (Auto) [place] # (Auto) Eos # (Auto) Baso # (Auto) Absolute Nucleated RBC Nucleated RBC % Sodium Potassium Chloride Carbon Dioxide Anion Gap BUN Creatinine Estimated GFR (MDRD) Glucose Calcium Total Bilirubin AST ALT Alkaline Phosphatase Troponin I < 0.04 Total Protein Albumin Globulin Albumin/Globulin Ratio Lipase TSH Urine Color YELLOW Urine Clarity CLEAR Urine pH 5.0 Ur Specific [place] 1.010 Urine Protein NEGATIVE Urine Glucose (UA) NEGATIVE Urine Ketones TRACE Urine Occult Blood TRACE-INTA Urine Nitrite NEGATIVE Urine Bilirubin NEGATIVE Urine Urobilinogen 0.2 (NORMAL) Ur Leukocyte Esterase NEGATIVE Ur Microscopic Review NOT INDICATED Urine Culture Comments NOT INDICATED Salicylates Urine Opiates Screen NEGATIVE Ur Oxycodone Screen NEGATIVE Urine Methadone Screen NEGATIVE Ur Propoxyphene Screen NEGATIVE Acetaminophen Ur Barbiturates Screen NEGATIVE Ur Tricyclics Screen NEGATIVE Ur Phencyclidine Scrn NEGATIVE Ur Amphetamine Screen NEGATIVE U Methamphetamines Scrn NEGATIVE U Benzodiazepines Scrn NEGATIVE Urine Cocaine Screen NEGATIVE U Cannabinoids Screen NEGATIVE Ethyl Alcohol PD MEDICAL DECISION MAKING - ED course Complexity details: reviewed results, re-evaluated patient, considered differential, d/w patient ED course: Patient presenting after likely mechanical fall from alcohol intoxication. Patient admits to alcohol use and smells of alcohol. Do not find evidence of trauma except for dried blood from unknown source over her right eyebrow.No evidence of other neurological deficit or systemic infection. Feel that patient's symptoms today are likely related to alcohol use as opposed to stroke, arrhythmia, PE, systemic infection including UTI or pneumonia, cardiac etiologies such as ACS, myocardial infarction, unstable angina, aneurysm, dissection, but considered. Physical exam is rather benign including abdominal exam. Do not have high suspicion for intra-abdominal pathology. Patient started on IV fluid and banana bag. Patient did have some emesis while in the ED and provided Zofran. Patient otherwise up and ambulating throughout the ED on her own. Screening lab work and urinalysis returned relatively unremarkable. Drug testing positive for alcohol. CT imaging did not find evidence of acute pathology. Patient continued to be monitored in the ED as she became more more sober. Patient denies having available family member or friend to pick her up, but will take a cab home. At this time, feel that she is safe to discharge home. Advised of results recommendations, including cessation of alcohol, closed head injury precautions and restrictions, return symptoms, and appropriate follow-up. Departure - Departure Disposition: 01 Home, Self Care Clinical Impression: Alcohol intoxication Qualifiers: Complication of substance-induced condition: uncomplicated Qualified Code(s): F10.920 - Alcohol use, unspecified with intoxication, uncomplicated Closed head injury Qualifiers: Encounter type: initial encounter Qualified Code(s): S09.90XA - Unspecified injury of head, initial encounter Condition: Good Instructions: ED Alcohol Intoxication, ED Head Injury Closed Follow-Up: Hallie Sims ARNP [Primary Care Provider] - Within 3 Days Comments: Please continue all home medications as previously instructed. Please do not drink alcohol or participate in recreational drugs. Follow-up with your primary care physician in next 2 to 3 days and return to ED sooner if experience worsening symptoms or have other concerns.
[2019-03-08] MEDS ORDERED: FOLIC ACID INJ 1 MG, THIAMINE INJ 100 MG, MAGNESIUM SULFATE 2 GM, MULTIVITAMIN 10 ML in... IV STA ×5 (11:32)
[2019-03-08 11:35] LABS: MUDS CUTOFF CONCENTRATIONS CUTOFF CONC BELOW:
[2019-03-08] MEDS ORDERED: SODIUM CHLORIDE 0.9% 1,000 ML IV ONE (11:35)
[2019-03-08 11:37] LABS: BASOPHILS % (AUTO) 0.4 %; BILIRUBIN,URINE NEGATIVE (NEGATIVE); EOSINOPHILS % (AUTO) 0.3 %; GLUCOSE, URINE (UA) NEGATIVE (NEGATIVE); HGB - HEMOGLOBIN 13.1 g/dL (12.0-16.0); KETONES,URINE (UA) TRACE mg/dL (NEGATIVE); LEUKOCYTE ESTERASE, URINE NEGATIVE (NEGATIVE); LYMPHOCYTES # (AUTO) 1.6 10^3/uL (1.5-3.5); LYMPHOCYTES % (AUTO) 19.8 %; MEAN CORPUSCULAR HEMOGLOBIN 30.8 pg (27.0-31.0); MEAN CORPUSCULAR VOLUME 96.5 fL (81.0-99.0); MEAN PLATELET VOLUME 9.3 fL (7.9-10.8); MONOCYTES # (AUTO) 0.5 10^3/uL (0.0-1.0); MONOCYTES % (AUTO) 6.7 %; NEUTROPHILS # (AUTO) 5.7 10^3/uL (1.5-6.6); NEUTROPHILS % (AUTO) 72.2 %; NITRITE,URINE NEGATIVE (NEGATIVE); OCCULT BLOOD,URINE TRACE-INTA (NEGATIVE); PLT - PLATELET COUNT 443 10^3/uL (130-450); PROTEIN,URINE NEGATIVE (NEGATIVE); RED BLOOD COUNT 4.25 10^6/uL (4.20-5.40); RED CELL DISTRIBUTION WIDTH 14.1 % (12.0-15.0); UROBILINOGEN,URINE 0.2 (NORMAL) E.U./dL (NORMAL); WHITE BLOOD COUNT 7.9 x10^3/uL (4.8-10.8)
[2019-03-08 11:42] LABS: CLARITY,URINE CLEAR (CLEAR)
[2019-03-08 11:53] LABS: ACETAMINOPHEN < 10 ug/mL (10-30); ALBUMIN 3.9 g/dL (3.2-5.5); ALBUMIN/GLOBULIN RATIO 1.1 (1.0-2.2); ALKALINE PHOSPHATASE 67 IU/L (42-121); ALT ALANINE AMINOTRANSFERASE 19 IU/L (10-60); AST ASPARTATE AMINOTRANSFERASE 16 IU/L (10-42); BILIRUBIN,TOTAL 0.8 mg/dL (0.2-1.0); BUN - BLOOD UREA NITROGEN 14 mg/dL (6-20); CALCIUM 8.8 mg/dL (8.5-10.3); CARBON DIOXIDE - CO2 25 mmol/L (21-32); CHLORIDE 96 mmol/L (101-111); CREATININE 0.6 mg/dL (0.4-1.0); GFR - MDRD 98 (>89); GLUCOSE 108 mg/dL (70-100); LIPASE 28 U/L (22-51); SALICYLATE < 6.0 mg/dL; SODIUM 140 mmol/L (135-145); TOTAL PROTEIN 7.6 g/dL (6.7-8.2)
[2019-03-08 12:15] LABS: AMPHETAMINE SCREEN,URINE NEGATIVE (NEGATIVE); BENZODIAZEPINES SCREEN, URINE NEGATIVE (NEGATIVE); COCAINE SCREEN URINE NEGATIVE (NEGATIVE); METHADONE SCREEN, URINE NEGATIVE (NEGATIVE); METHAMPHETAMINES SCREEN, URINE NEGATIVE (NEGATIVE); OPIATE SCREEN, URINE NEGATIVE (NEGATIVE); OXYCODONE SCREEN, URINE NEGATIVE (NEGATIVE); PROPOXYPHENE SCREEN, URINE NEGATIVE (NEGATIVE); TRICYCLIC ANTIDEPRESSANT,URINE NEGATIVE (NEGATIVE)
--- NOTE | 2019-03-08 13:03 | CT Report ---
Reason: fall with LOC, etoh Procedure Date: 03/08/2019 Accession Number: [id number] / [id number] Procedure: CT - HEAD WO CPT Code: FULL RESULT: EXAM: CT HEAD EXAM DATE: 03/08/2019 12:38 PM. CLINICAL HISTORY: Fall with LOC, etoh. COMPARISON: HEAD W/O 12/03/2014 7:26 PM. TECHNIQUE: Multiaxial CT images were obtained from the foramen magnum to the vertex. Reformats: Sagittal and coronal. IV contrast: None. Patient motion artifact is more pronounced along the inferior skull base. In accordance with CT protocol optimization, one or more of the following dose reduction techniques were utilized for this exam: automated exposure control, adjustment of mA and/or KV based on patient size, or use of iterative reconstructive technique. FINDINGS: Parenchyma: No intraparenchymal hemorrhage. No evidence of mass, midline shift, or CT findings of acute infarction. Cotton-white differentiation is distinct. Diffuse chronic microangiopathic white matter changes are evident. Extraaxial Spaces: Normal for age. No subdural or epidural collections identified. Ventricles: The ventricles and cortical sulci are enlarged, consistent with age-related tissue loss. Sinuses and orbits: Imaged paranasal sinuses, orbits, and mastoids show no significant abnormality. Bones: No evidence of fracture or calvarial defect. Other: None. IMPRESSION: Generalized age-related cortical atrophic changes without evidence of acute intracranial abnormality. RADIA
--- NOTE | 2019-03-08 13:05 | XRAY Report ---
Reason: chest pain Procedure Date: 03/08/2019 Accession Number: [id number] / [id number] Procedure: XR - Chest 1 View X-Ray CPT Code: 06355 FULL RESULT: EXAM: CHEST RADIOGRAPHY EXAM DATE: 03/08/2019 12:41 PM. CLINICAL HISTORY: Chest pain. COMPARISON: ABDOMEN COMPLETE 08/23/2018 1:35 AM. TECHNIQUE: 1 view. FINDINGS: Lungs/Pleura: Large geographic medial right lower chest opacity. Mediastinum: Within exam limitations, the cardiomediastinal contour is normal. Other: Bilateral total shoulder arthroplasty. Scoliosis. IMPRESSION: 1. Large geographic medial right lower chest opacity. Question hiatal hernia with adjacent atelectasis or partial right lower lung collapse. Recommend comparison with any prior outside studies if possible. Alternatively, CT could further assess. RADIA
--- NOTE | 2019-03-08 13:11 | CT Report ---
Reason: fall with LOC, Etoh Procedure Date: 03/08/2019 Accession Number: [id number] / [id number] Procedure: CT - CERVICAL SPINE WO CPT Code: FULL RESULT: EXAM: CT CERVICAL SPINE WITHOUT CONTRAST DATE: 03/08/2019 12:38 PM. HISTORY: Fall with LOC, ETOH. COMPARISONS: HEAD W/O 12/03/2014 7:26 PM. TECHNIQUE: Thin-section axial images were acquired of the cervical spine without contrast. Post-processing: Coronal and sagittal reformats. Other: None. In accordance with CT protocol optimization, one or more of the following dose reduction techniques were utilized for this exam: automated exposure control, adjustment of mA and/or KV based on patient size, or use of iterative reconstructive technique. FINDINGS: Alignment: Grade 2 anterolisthesis of C7 on T1 vertebral body measuring 4 mm. Grade 1 anterolisthesis of T1 on T2 vertebral body and also of C2 on C3 vertebral body. Bones: No fracture or bone lesion. Interspace Levels/Facets: C1-C2: Unremarkable. C2-C3: Mild bilateral facet hypertrophy. C3-C4: Marked loss of disk space height. Severe left neural foraminal narrowing from uncovertebral joint hypertrophy. Mild right neural foraminal narrowing also from uncovertebral joint hypertrophy. C4-C5: Marked loss of disk space height. Severe right and moderate left neural foraminal narrowing from uncovertebral joint hypertrophy. C5-C6: Severe loss of disk space height. Mild right and mild to moderate left neural foraminal narrowing from uncovertebral joint hypertrophy. C6-C7: Mild bilateral neural foraminal narrowing from uncovertebral joint hypertrophy. Marked loss of disk space height. C7-T1: Marked loss of disk space height. Mild bilateral uncovertebral joint hypertrophy. Moderate bilateral facet hypertrophy; however, no significant neural foraminal narrowing. At T1-T2 levels, there is mild bilateral facet hypertrophy. Musculature: Normal. No fatty atrophy. Other: The paravertebral and prevertebral soft tissues are unremarkable. The lung apices are clear. IMPRESSION: 1. Advanced multilevel cervical spine degenerative changes. 2. No fracture. RADIA
[2019-03-08] MEDS ORDERED: ONDANSETRON 4 MG/2 ML VIAL IVP STA (15:48)
[2019-03-08 16:56] VITALS: BP 118/66
== END 2019-03-08 16:51 | disposition home or self-care (01) ==
LOC: EDUNIT# → ED 10:45
DX: F10.920 Alcohol use, unspecified with intoxication, uncomplicated (principal); S09.90XA Unspecified injury of head, initial encounter; W19.XXXA Unspecified fall, initial encounter; Y92.009 Unspecified place in unspecified non-institutional (private) residence as the place of occurrence of the external cause; R11.10 Vomiting, unspecified; I45.81 Long QT syndrome; I45.10 Unspecified right bundle-branch block; I10 Essential (primary) hypertension; E78.00 Pure hypercholesterolemia, unspecified; Z87.891 Personal history of nicotine dependence
CPT/HCPCS: 36415; 70450; 71045; 72125; 81003; 83690; 84484; 93005; 96361; 96374; 96375; 99283; 99284; J3411; 80053; 80306; 80307; 80320; 80329; 81001; 84443; 85025; 87086

== ENCOUNTER 2019-04-20 | Outpatient (CLI) | payer MEDICARE, OTHER | END 2019-04-20 23:59 | disposition home or self-care (01) | DX: I10 Essential (primary) hypertension (principal) ==

== ENCOUNTER 2019-05-28 11:39 | Outpatient (CLI) | payer MEDICARE, OTHER ==
--- NOTE | 2019-05-29 11:16 | Mammography Report ---
Reason: ANNUAL SCREENING SELF REFER Procedure Date: 05/28/2019 Accession Number: [id number] / [id number] Procedure: [facility]N - Screening Mammo Dig Bilat CPT Code: FULL RESULT: EXAM: Screening Mammo Dig Bilat DATE: 05/28/2019 11:55 AM CLINICAL HISTORY: Routine screening TECHNIQUE: (B) - Bilateral CC and MLO views were obtained. COMPARISON: 10/07/2017, 10/13/2012 and 09/20/12 PARENCHYMAL PATTERN: (A) - The breasts demonstrate scattered fibroglandular densities bilaterally. FINDINGS: No significant interval change. There are no suspicious masses, calcifications, or areas of distortion. IMPRESSION: Negative examination. BI-RADS category 1. RECOMMENDATION: (ANNUAL) - Recommend routine annual screening mammography. BI-RADS CATEGORY: (1) - Negative. STANDARD QUALIFYING STATEMENTS: 1. This examination was not reviewed with the aid of Computer-Aided Detection (CAD). 2. A negative or benign imaging report should not preclude biopsy if clinically suspicious findings are present. 3. Dense breasts may obscure an underlying neoplasm. 4. This examination was reviewed without the aid of 3D breast imaging (tomosynthesis).
== END 2019-05-28 11:40 | disposition home or self-care (01) ==
LOC: DI.N 11:39
DX: Z12.31 Encounter for screening mammogram for malignant neoplasm of breast (principal)
CPT/HCPCS: 77067

== ENCOUNTER 2020-03-18 07:00 | Outpatient (CLI) | payer MEDICARE, OTHER | END 2020-03-18 23:59 | disposition home or self-care (01) | LOC: LAB.R 07:00 | PROVIDERS: ATTEND Nurse Practitioner Family | DX: R31.9 Hematuria, unspecified (principal) | CPT/HCPCS: 87086; 87181 ==

== ENCOUNTER 2023-12-16 08:00 | Outpatient (CLI) | payer MEDICARE, OTHER | END 2023-12-16 23:59 | disposition home or self-care (01) | LOC: PC 08:00 | PROVIDERS: ATTEND Nurse Practitioner Gerontology | DX: Z51.5 Encounter for palliative care (principal); C34.91 Malignant neoplasm of unspecified part of right bronchus or lung; F32.A Depression, unspecified; G62.9 Polyneuropathy, unspecified; D64.9 Anemia, unspecified; K21.9 Gastro-esophageal reflux disease without esophagitis; K44.9 Diaphragmatic hernia without obstruction or gangrene; Z79.899 Other long term (current) drug therapy; Z98.1 Arthrodesis status; Z87.891 Personal history of nicotine dependence; Z71.89 Other specified counseling; Z66 Do not resuscitate | CPT/HCPCS: 99345 ==

== ENCOUNTER 2024-01-13 08:00 | Outpatient (CLI) | payer MEDICARE, OTHER | END 2024-01-13 23:59 | disposition home or self-care (01) | LOC: PC 08:00 | PROVIDERS: ATTEND Nurse Practitioner Gerontology | DX: Z51.5 Encounter for palliative care (principal); C34.2 Malignant neoplasm of middle lobe, bronchus or lung; C79.51 Secondary malignant neoplasm of bone; I10 Essential (primary) hypertension; F32.A Depression, unspecified; Z87.891 Personal history of nicotine dependence; Z71.89 Other specified counseling; Z79.899 Other long term (current) drug therapy; R20.2 Paresthesia of skin; M21.372 Foot drop, left foot; J90 Pleural effusion, not elsewhere classified; H91.93 Unspecified hearing loss, bilateral; R26.81 Unsteadiness on feet; M62.81 Muscle weakness (generalized) | CPT/HCPCS: 99349 ==

== ENCOUNTER 2024-03-06 15:45 | Outpatient (CLI) | payer MEDICARE, OTHER | END 2024-03-06 23:59 | disposition home or self-care (01) | LOC: PC 15:45 | PROVIDERS: ATTEND Nurse Practitioner Gerontology | DX: Z51.5 Encounter for palliative care (principal); R06.02 Shortness of breath; M54.50 Low back pain, unspecified; C79.51 Secondary malignant neoplasm of bone; C34.2 Malignant neoplasm of middle lobe, bronchus or lung; R60.0 Localized edema; R53.83 Other fatigue; R53.1 Weakness; I95.9 Hypotension, unspecified; K59.00 Constipation, unspecified; Z79.899 Other long term (current) drug therapy; Z87.891 Personal history of nicotine dependence; Z66 Do not resuscitate; R20.0 Anesthesia of skin; M81.0 Age-related osteoporosis without current pathological fracture; F10.21 Alcohol dependence, in remission | CPT/HCPCS: 99350; G0318; 99417 ==

== ENCOUNTER 2024-03-07 15:47 | Outpatient (CLI) | payer MEDICARE, OTHER ==
--- NOTE | 2024-03-07 17:29 | XRAY Report ---
PROCEDURE: Chest 2V INDICATIONS: LUNG CANCER TECHNIQUE: 2 views of the chest were acquired. COMPARISON: 03/08/2019 chest film, CT chest dated 12/14/2023. FINDINGS: Surgical changes and devices: Bilateral shoulder arthroplasties. Lungs and pleura: There is a known large hiatal hernia which is part of the density in the right hem ithorax. There is interval development of a moderate to large right pleural effusion with compressive atelectasis, both from the hiatal hernia and from the fluid. The left lung is clear. Mediastinum: Mediastinal contours appear normal. Heart size is normal. Bones and chest wall: No suspicious bony lesions. Overlying soft tissues appear unremarkable. IMPRESSION: 1. Known underlying large hiatal hernia. 2. Development of a moderate to large right pleural effusion and increased collapse of the right lowe r lobe. Reviewed by: Brien Peck MD on 03/07/2024 5:28 PM PDT Approved by: Brien Peck MD on 03/07/2024 5:28 PM PDT Station ID: [id number]
== END 2024-03-07 15:48 | disposition home or self-care (01) ==
LOC: DI 15:47
PROVIDERS: ATTEND Nurse Practitioner Gerontology
DX: J90 Pleural effusion, not elsewhere classified (principal); J98.11 Atelectasis; K44.9 Diaphragmatic hernia without obstruction or gangrene; C34.90 Malignant neoplasm of unspecified part of unspecified bronchus or lung

== ENCOUNTER 2024-03-08 13:00 | Outpatient (CLI) | payer MEDICARE, OTHER ==
--- NOTE | 2024-03-08 15:17 | XRAY Report ---
PROCEDURE: Post Thoracentesis 1V CXR INDICATIONS: THORACENTESIS TECHNIQUE: One view of the chest was acquired. COMPARISON: CT chest with, 03/07/2024. Chest x-ray, 03/07/2024. FINDINGS: Surgical changes and devices: None. Lungs and pleura: There is a linear density in the lateral aspect of the right midlung, most likely a skinfold. Pulmonary vessels can be seen lateral and peripheral to the linear density. Right pleural effusion effusion has decreased. A small to moderate residual right pleural effusion is present with right basilar atelectasis. Mediastinum: Mediastinal contours appear normal. Heart size is normal. Bones and chest wall: No suspicious bony lesions. Overlying soft tissues appear unremarkable. IMPRESSION: 1. There is a linear density in the lateral aspect of the right midlung, most likely a skinfold. Pulm onary vessels can be seen lateral and peripheral to the linear density. A differential diagnosis is a small loculated pleural effusion. I spoke with the patient after the procedure. The patient appears comfortable and in no distress. She lives approximately 10 minutes from the hospital. I instructed he r to come to the ER if she develops increasing chest pain or shortness of breath. The patient indicat ed that she understood the instruction. We also told the patient to have a repeat chest x-ray in 24 h ours. The patient left the department in good condition. Reviewed by: Beto Warner MD on 03/08/2024 3:16 PM PDT Approved by: Beto Warner MD on 03/08/2024 3:16 PM PDT Station ID: [id number]
--- NOTE | 2024-03-08 16:19 | Ultrasound Report ---
PROCEDURE: Thoracentesis Puncture INDICATIONS: PLUERAL EFFUSION TECHNIQUE: The indications, alternatives, benefits, risks, and complications of the procedure were explained to the patient. Written informed consent was obtained and placed in the chart. The chest was examined sonographically, and an appropriate site was chosen for thoracentesis. The skin was prepared and diana ped in the usual sterile fashion, and 1% lidocaine was infiltrated from the skin down through the ple ural surface. A 19-gauge catheter-covered needle was then introduced into the pleural space, the cat heter was advanced and the needle was withdrawn, and thereafter pleural fluid was aspirated. The cat heter was then removed and a dressing was applied. COMPARISON: Chest x-ray, 03/07/2024. CT chest, 03/07/2024. FINDINGS: Access site: Right hemithorax. Needle: One-Step centesis catheter with introducer needle. Fluid volume and description: 1.35 L; serosanguineous. Fluid sent for diagnostic testing: Yes. Medications: 1% lidocaine for local anaesthesia. Complications: None; post-procedural chest radiograph is pending to assess for pneumothorax. IMPRESSION: Successful ultrasound-guided thoracentesis. Please see the post thoracentesis chest x-ray report. Reviewed by: Beto Warner MD on 03/08/2024 4:17 PM PDT Approved by: Beto Warner MD on 03/08/2024 4:17 PM PDT Station ID: [id number]
== END 2024-03-08 13:01 | disposition home or self-care (01) ==
LOC: DI 13:00
PROVIDERS: ATTEND Nurse Practitioner Gerontology
DX: C34.90 Malignant neoplasm of unspecified part of unspecified bronchus or lung (principal); J91.0 Malignant pleural effusion
CPT/HCPCS: 32555

== ENCOUNTER 2024-03-09 12:00 | Outpatient (CLI) | payer MEDICARE, OTHER ==
--- NOTE | 2024-03-09 14:20 | XRAY Report ---
PROCEDURE: Chest 1V INDICATIONS: LUNG CA TECHNIQUE: One view of the chest was acquired. COMPARISON: 03/08/2024 FINDINGS: Surgical changes and devices: None. Lungs and pleura: Mild to moderate right pleural effusion. There is no discrete pneumothorax. Low germaine ng volumes. Mildly prominent interstitium. Right mid and lower lung opacities also present. Mediastinum: Heart size is at the upper limits of normal. Suspected hiatal hernia. Bones and chest wall: Degenerative changes. Bilateral shoulder arthroplasties appear IMPRESSION: Mild to moderate pleural effusion. There is no significant pneumothorax. Right mid and lower lung opa [place] again seen. Mildly prominent interstitium likely additional edema. Suspected hiatal hernia. Reviewed by: Alfredo Sage MD on 03/09/2024 2:19 PM PDT Approved by: Alfredo Sage MD on 03/09/2024 2:19 PM PDT Station ID: [id number]
== END 2024-03-09 12:01 | disposition home or self-care (01) ==
LOC: DI 12:00
PROVIDERS: ATTEND Internal Medicine
DX: C34.90 Malignant neoplasm of unspecified part of unspecified bronchus or lung (principal); J90 Pleural effusion, not elsewhere classified

== ENCOUNTER 2024-03-18 08:00 | Outpatient (CLI) | payer MEDICARE, OTHER | END 2024-03-18 23:59 | disposition home or self-care (01) | LOC: PC 08:00 | PROVIDERS: ATTEND Nurse Practitioner Gerontology | DX: Z51.5 Encounter for palliative care (principal); C34.90 Malignant neoplasm of unspecified part of unspecified bronchus or lung | CPT/HCPCS: 99426 ==

== ENCOUNTER 2024-03-20 13:47 | Emergency (ER) | payer MEDICARE, OTHER ==
--- NOTE | 2024-03-20 14:32 | ED Physician Documentation ---
PD HPI DYSPNEA - Stated complaint Stated Complaint: SOA - Chief complaint Chief Complaint: Resp - History obtained from History obtained from: Patient - Additional information Additional information: 78-year-old woman with stage IV metastatic lung cancer on therapy needed a thoracentesis for symptomatic dyspnea 10 days ago. Prior to that had not ever needed a thoracentesis. Now she feels like the fluid is collecting again and has right lung pain and shortness of breath. PD PAST MEDICAL HISTORY - Past Medical History Cardiovascular: Hypertension, High cholesterol Respiratory: None Neuro: None Endocrine/Autoimmune: None GI: None ASSISTANT CASE MANAGER: None : None HEENT: None Psych: Depression, Anxiety Musculoskeletal: None, Scoliosis, Chronic back pain Derm: None - Past Surgical History Past Surgical History: Yes General: Cholecystectomy, Other Ortho: Hip replacement, Shoulder arthroplasty, Spine surgery /ASSISTANT CASE MANAGER: Tubal ligation - Present Medications Home Medications: Ambulatory Orders Medication Instructions Recorded Confirmed Cholecalciferol (Vitamin D3) 1,000 unit PO DAILY 08/23/18 03/20/24 [Vitamin D3] Losartan [Cozaar] 50 mg PO DAILY 11/30/23 03/20/24 Morphine ER [Ms Contin] 45 mg PO DAILY 11/30/23 03/20/24 Osimertinib Mesylate [Tagrisso] 80 mg PO DAILY 11/30/23 03/20/24 Vitamin B Complex 1 tab PO DAILY 11/30/23 03/20/24 Acetaminophen [Tylenol] 500 mg PO DAILY 03/20/24 03/20/24 Acetaminophen/Cod 300/30 [Tylenol 30 - 300 mg PO DAILY 03/20/24 03/20/24 #3] Furosemide [Lasix] 20 mg PO .TEXT 03/20/24 03/20/24 - Allergies Allergies/Adverse Reactions: Allergies Allergy/AdvReac Type Severity Reaction Status Date / Time naproxen sodium * Allergy Mild Rash Verified 03/20/24 14:08 [From Aleve] REHAN Inhibitors Allergy Edema Verified 03/20/24 14:08 lisinopril Allergy Edema Verified 03/20/24 14:08 - Social History Does the pt smoke?: No Smoking Status: Never smoker Does the pt drink ETOH?: Yes Does the pt have substance abuse?: No - Immunizations Immunizations are current?: No - POLST Patient has POLST: No PD ED PE NORMAL - Vitals Vital signs reviewed: Yes - General General: Alert and oriented X 3, No acute distress - Respiratory Respiratory: No respiratory distress, Other (Absent breath sounds on the right) - Neuro Neuro: Alert and oriented X 3 Results - Vitals Vitals: Vital Signs - 24 hr 03/20/24 03/20/24 03/20/24 14:00 15:05 15:20 Temperature 36.9 C Heart Rate 100 91 91 Respiratory 20 18 20 Rate Blood Pressure 118/76 108/66 O2 Saturation 94 96 99 Oxygen O2 Source [] Room air O2 Source Room air - Rads (name of study) Single view chest x-ray demonstrating large right pleural effusion, increased from prior. Relevant Findings:: Final report received, EMP independent interpretation of test Postprocedural x-ray demonstrating decreased pleural effusion without pneumothorax. Relevant Findings:: Final report received, EMP independent interpretation of test Procedures - Thoracentesis - Major Preparation: Consent obtained (Written), Sterile prep and drape, Sitting Technique: Catheter over needle, Right, Ultrasound used Fluid: Clear, Other (I had about 1.2 L out after which she started to get a lot of pleuritic pain and requested termination of the procedure.) Aftercare: CXR obtained PD Medical Decision Making - ED course ED course: 78-year-old is miserable with a symptomatic pleural effusion related to her stage IV lung cancer. A thoracentesis was done without immediate complication and she felt much better. Departure - Departure Disposition: 01 Home, Self Care Clinical Impression: Pleural effusion Condition: Good Record reviewed to determine appropriate education?: Yes Instructions: Thoracentesis Dc Comments: Follow-up with your palliative care nurse practitioner and oncology physician as per routine. Return for new or worsening symptoms. If you continue to have an increasing need for thoracocentesis, reasonable to discuss a more permanent solution with your team. Forms: PCP List
--- NOTE | 2024-03-20 14:52 | XRAY Report ---
PROCEDURE: Chest 1V INDICATIONS: upright, pleural effusion TECHNIQUE: One view of the chest was acquired. COMPARISON: 03/09/2024 FINDINGS: Surgical changes and devices: Shoulder arthroplasties. Partially visualized surgical fusion of the lower lumbar spine. Lungs and pleura: Large right pleural effusion with right basilar atelectasis/consolidation, increas ed from prior. Mediastinum: Mediastinal contours appear normal. Heart size is normal. Bones and chest wall: No suspicious bony lesions. Overlying soft tissues appear unremarkable. IMPRESSION: Large right pleural effusion, increased from prior. Reviewed by: Benny Cardoza MD on 03/20/2024 2:51 PM PDT Approved by: Benny Cardoza MD on 03/20/2024 2:51 PM PDT Station ID: [id number]
[2024-03-20 15:07] VITALS: BP 108/66
[2024-03-20] MEDS: LIDOCAINE 1%-EPI 1:100000 20 ML MDV SUBQ STA (15:14)
--- NOTE | 2024-03-20 15:22 | XRAY Report ---
PROCEDURE: Post Thoracentesis 1V CXR INDICATIONS: Upright, postthoracentesis TECHNIQUE: One view of the chest was acquired. COMPARISON: 03/20/2024 FINDINGS: Surgical changes and devices: Shoulder arthroplasties. Lungs and pleura: Decreased right-sided pleural effusion, now [id number]. No pneumothorax. Mediastinum: Mediastinal contours appear normal. Heart size is normal. Bones and chest wall: No suspicious bony lesions. Overlying soft tissues appear unremarkable. IMPRESSION: Decreased pleural effusions without pneumothorax. Reviewed by: Benny Cardoza MD on 03/20/2024 3:20 PM PDT Approved by: Benny Cardoza MD on 03/20/2024 3:20 PM PDT Station ID: [id number]
[2024-03-20 15:27] VITALS: O2SAT 99
== END 2024-03-20 15:37 | disposition home or self-care (01) ==
LOC: ED 13:47
DX: C34.90 Malignant neoplasm of unspecified part of unspecified bronchus or lung (principal); J91.8 Pleural effusion in other conditions classified elsewhere; C79.9 Secondary malignant neoplasm of unspecified site
CPT/HCPCS: 32554; 99283

== ENCOUNTER 2024-03-29 09:14 | Outpatient (CLI) | payer MEDICARE, OTHER ==
[2024-03-29] MEDS ORDERED: LIDOCAINE-MPF 1% 5 ML VIAL ONE (09:57)
--- NOTE | 2024-03-29 10:28 | XRAY Report ---
PROCEDURE: Post Thoracentesis 1V CXR INDICATIONS: Post Thoracentesis TECHNIQUE: One view of the chest was acquired. COMPARISON: March 20, 2024 FINDINGS: Surgical changes and devices: Bilateral shoulder arthroplasties. Lungs and pleura: Decreased right pleural effusion. Underlying lung opacities are present. Low lung volumes. There is a trace right apex pleural line, with probable fluid at the apex. Mediastinum: Normal heart size Bones and chest wall: Degenerative changes IMPRESSION: Decreased right pleural effusion. No significant pneumothorax. A trace right apex pleural line, with probable fluid at the apex, probably loculated fluid. Patient w as asymptomatic following the procedure. Reviewed by: Alfredo Sage MD on 03/29/2024 10:27 AM PDT Approved by: Alfredo Sage MD on 03/29/2024 10:27 AM PDT Station ID: [id number]
--- NOTE | 2024-03-30 13:08 | Ultrasound Report ---
PROCEDURE: Thoracentesis Puncture INDICATIONS: PLEURAL EFFUSIONS, LUNG CA TECHNIQUE: The indications, alternatives, benefits, risks, and complications of the procedure were explained to the patient. Written informed consent was obtained and placed in the chart. The chest was examined sonographically, and an appropriate site was chosen for thoracentesis. The skin was prepared and diana ped in the usual sterile fashion, and 1% lidocaine was infiltrated from the skin down through the ple ural surface. A 19-gauge catheter-covered needle was then introduced into the pleural space, the cat heter was advanced and the needle was withdrawn, and thereafter pleural fluid was aspirated. The cat heter was then removed and a dressing was applied. COMPARISON: 03/08/2024 FINDINGS: Access site: Right hemithorax. Needle: One-Step centesis catheter with introducer needle. Fluid volume and description: 900 cc, serosanguineous Fluid sent for diagnostic testing: No Medications: 1% lidocaine for local anaesthesia. Complications: None; post-procedural chest radiograph is pending to assess for pneumothorax. IMPRESSION: Successful ultrasound-guided thoracentesis. Reviewed by: Alfredo Sage MD on 03/30/2024 1:06 PM PDT Approved by: Alfredo Sage MD on 03/30/2024 1:06 PM PDT Station ID: [id number]
== END 2024-03-29 09:15 | disposition home or self-care (01) ==
LOC: DI 09:14
PROVIDERS: ATTEND Internal Medicine
DX: J91.0 Malignant pleural effusion (principal)
CPT/HCPCS: 32555

== ENCOUNTER 2024-04-09 09:52 | Outpatient (CLI) | payer MEDICARE, OTHER ==
--- NOTE | 2024-04-10 12:25 | Ultrasound Report ---
PROCEDURE: Thoracentesis Puncture INDICATIONS: LUNG CA, PLEURAL EFFUSION TECHNIQUE: The indications, alternatives, benefits, risks, and complications of the procedure were explained to the patient. Written informed consent was obtained and placed in the chart. The chest was examined sonographically, and an appropriate site was chosen for thoracentesis. The skin was prepared and diana ped in the usual sterile fashion, and 1% lidocaine was infiltrated from the skin down through the ple ural surface. A 19-gauge catheter-covered needle was then introduced into the pleural space, the cat heter was advanced and the needle was withdrawn, and thereafter pleural fluid was aspirated. The cat heter was then removed and a dressing was applied. COMPARISON: Ultrasound guided pleurocentesis, 03/29/2024, 03/08/2024. FINDINGS: Access site: Right hemithorax. Needle: One-Step centesis catheter with introducer needle. Fluid volume and description: 800 cc, clear dark [place] Fluid sent for diagnostic testing: No Medications: 1% lidocaine for local anaesthesia. Complications: None; post-procedural chest radiograph is pending to assess for pneumothorax. IMPRESSION: Successful ultrasound-guided thoracentesis. Reviewed by: Lary Turner MD, PhD on 04/10/2024 12:24 PM PDT Approved by: Lary Turner MD, PhD on 04/10/2024 12:24 PM PDT Station ID: [id number]
--- NOTE | 2024-04-10 12:26 | XRAY Report ---
PROCEDURE: Post Thoracentesis 1V CXR INDICATIONS: Post Thoracentesis right side TECHNIQUE: One view of the chest was acquired. COMPARISON: Chest radiograph 03/29/2024, 03/20/2024. FINDINGS: Surgical changes and devices: Bilateral shoulder arthroplasty and partially visualized lumbar sea kayaking guide ior spinal fusion hardware. Lungs and pleura: No pneumothorax. Moderate right pleural effusion with subjacent atelectasis. Mediastinum: Mediastinal contours appear normal. Heart size is normal. Bones and chest wall: No suspicious bony lesions. Overlying soft tissues appear unremarkable. IMPRESSION: No pneumothorax status post right thoracentesis. Moderate right pleural effusion persists. Reviewed by: Lary Turner MD, PhD on 04/10/2024 12:25 PM PDT Approved by: Lary Turner MD, PhD on 04/10/2024 12:25 PM PDT Station ID: [id number]
== END 2024-04-09 09:53 | disposition home or self-care (01) ==
LOC: DI 09:52
PROVIDERS: ATTEND Nurse Practitioner Gerontology
DX: C34.90 Malignant neoplasm of unspecified part of unspecified bronchus or lung (principal); J90 Pleural effusion, not elsewhere classified
CPT/HCPCS: 32555

== ENCOUNTER 2024-04-16 09:49 | Emergency (ER) | payer MEDICARE, OTHER ==
--- NOTE | 2024-04-16 12:20 | ED Physician Documentation ---
History of Present Illness - Stated complaint Stated Complaint: POST SURG COMPLICATIONS - Chief complaint Chief Complaint: General - History obtained from History obtained from: Patient - Additonal information Additional information: 78-year-old female with a history of stage IV metastatic lung cancer presents for concerns about her rightAspira drain. It she had it placed recently for recurrent pleural effusions and it sounds as though home health did not get set up and patient was given some sort of CD and instructions on how to manage the drain at home by herself but she had difficulty doing so. She is frustrated and requesting assistance with wound care and it sounds as though she also needs a referral for home health. She drained about 100 and miles 2 days ago. The area around the drain is tender but there is no redness, no drainage from the wound site. She also has a small wound more posterior to this. Drain from a prior thoracentesis and has been providing wound care on herself there as well. No fever, no increased shortness of breath, no other chest pain. Review of Systems Constitutional: reports: Reviewed and negative Eyes: reports: Reviewed and negative Ears: reports: Reviewed and negative Nose: reports: Reviewed and negative Throat: reports: Reviewed and negative Cardiac: reports: Reviewed and negative Respiratory: reports: Dyspnea GI: reports: Reviewed and negative : reports: Reviewed and negative Skin: reports: Other (Chest tube wound) PD PAST MEDICAL HISTORY - Past Medical History Past Medical History: Yes Cardiovascular: Hypertension, High cholesterol Respiratory: None Neuro: None Endocrine/Autoimmune: None GI: None MANAGER POWER: None : None HEENT: None Psych: Depression, Anxiety Musculoskeletal: None, Scoliosis, Chronic back pain Derm: None - Past Surgical History Past Surgical History: Yes General: Cholecystectomy, Other Ortho: Hip replacement, Shoulder arthroplasty, Spine surgery /MANAGER POWER: Tubal ligation - Present Medications Home Medications: Ambulatory Orders Medication Instructions Recorded Confirmed Cholecalciferol (Vitamin D3) 1,000 unit PO DAILY 08/23/18 03/21/24 [Vitamin D3] Losartan [Cozaar] 25 mg PO DAILY 11/30/23 03/21/24 Morphine ER [Ms Contin] 100 mg PO UD 11/30/23 03/21/24 Osimertinib Mesylate [Tagrisso] 80 mg PO DAILY 11/30/23 03/21/24 Vitamin B Complex 1 tab PO DAILY 11/30/23 03/21/24 Acetaminophen [Tylenol] 500 mg PO DAILY 03/20/24 03/21/24 Acetaminophen/Cod 300/30 [Tylenol 30 - 300 mg PO DAILY 03/20/24 03/21/24 #3] Furosemide [Lasix] 20 mg PO .TEXT 03/20/24 03/21/24 - Allergies Allergies/Adverse Reactions: Allergies Allergy/AdvReac Type Severity Reaction Status Date / Time naproxen sodium * Allergy Mild Rash Verified 04/16/24 10:21 [From Aleve] REHAN Inhibitors Allergy Edema Verified 04/16/24 10:21 lisinopril Allergy Edema Verified 04/16/24 10:21 - Social History Does the pt smoke?: No Smoking Status: Never smoker Does the pt drink ETOH?: Yes Does the pt have substance abuse?: No - Immunizations Immunizations are current?: No - POLST Patient has POLST: No PD ED PE NORMAL - Vitals Vital signs reviewed: Yes - General General: Alert and oriented X 3, No acute distress, Well developed/nourished - HEENT HEENT: Atraumatic, Moist mucous membranes - Cardiac Cardiac: RRR, No murmur - Respiratory Respiratory: No respiratory distress, Clear bilaterally, Other (chest wall Aspira drain. It is sutured in place. It no skin irritation or drainage from the tube site. The tube itself has a tiny amount of serosanguineous drainage. ) - Derm Derm: Normal color, Warm and dry, Other (4 mm shallow Laceration right chest wall , Dried and scabbed, localized erythema, no focal abscess.) Results - Vitals Vitals: Vital Signs - 24 hr 04/16/24 10:15 Temperature 36.3 C L Heart Rate 86 Respiratory 16 Rate Blood Pressure 120/74 O2 Saturation 97 Oxygen O2 Source [Without Activity] Room air O2 Source Room air PD Medical Decision Making - ED course Complexity details: reviewed old records, d/w patient ED course: 78-year-old female presented with concerned about her new Aspira drain in the right chest wall. She is requesting Dressing change and to evaluate another wound on her right chest wall. The wounds Appears to be healing well and there are no signs of active infection. Her Aspira drain is draining appropriately, and the insertion site appears to be healing well. Unfortunate is uncomfortable for the patient but I advised to continue as needed pain medicine and that this pain should improve with time. The small wound was cleaned and dressed and a new chest tube dressing was placed. A referral to home health was ordered at in order to get the patient up for management of the strain at home. Return precautions reviewed patient discharged home in stable condition. Departure - Departure Disposition: 01 Home, Self Care Clinical Impression: Dressing change or removal, surgical wound Condition: Good Instructions: ED Bandage Change Comments: I have put in a referral to home health to help you with your chest tube dressing changes and drainage of the tube. I am sorry that it has been difficult for you the last several days. Home health should be arranged and they can take over the management of your chest tube. In the meantime, we have cleaned and dressed the wound today. The wound on your chest wall is healing very well and does not look infected. Does not have any drainage and therefore you can change the dressing every other day for now. Your Chest tube site also looks to be healing well. This will get less uncomfortable as time goes on. We have changed the dressing today and it does not need to be changed again for 2 to 3 days Or if it gets dirty. Forms: PCP List
[2024-04-16 13:09] LABS: BILIRUBIN,URINE NEGATIVE (NEGATIVE); GLUCOSE, URINE (UA) NEGATIVE (NEGATIVE); KETONES,URINE (UA) NEGATIVE (NEGATIVE); LEUKOCYTE ESTERASE, URINE NEGATIVE (NEGATIVE); NITRITE,URINE NEGATIVE (NEGATIVE); OCCULT BLOOD,URINE NEGATIVE (NEGATIVE); PROTEIN,URINE NEGATIVE (NEGATIVE); UROBILINOGEN,URINE 1 (NORMAL) E.U./dL (NORMAL)
[2024-04-16 13:14] VITALS: BP 118/72; O2SAT 98
[2024-04-16 13:40] LABS: CLARITY,URINE CLEAR (CLEAR)
== END 2024-04-16 13:01 | disposition home or self-care (01) ==
LOC: ED 09:49
DX: Z48.01 Encounter for change or removal of surgical wound dressing (principal); I10 Essential (primary) hypertension; E78.00 Pure hypercholesterolemia, unspecified; C34.90 Malignant neoplasm of unspecified part of unspecified bronchus or lung; C79.9 Secondary malignant neoplasm of unspecified site; Z79.899 Other long term (current) drug therapy
CPT/HCPCS: 81001; 81003; 87086; 99283

== ENCOUNTER 2024-04-18 08:00 | Outpatient (CLI) | payer MEDICARE, OTHER | END 2024-04-18 23:59 | disposition home or self-care (01) | LOC: PC 08:00 | PROVIDERS: ATTEND Nurse Practitioner Gerontology | DX: Z51.5 Encounter for palliative care (principal); C34.90 Malignant neoplasm of unspecified part of unspecified bronchus or lung | CPT/HCPCS: 99426; 99427 ==

== ENCOUNTER 2024-04-18 08:00 | Outpatient (CLI) | payer MEDICARE, OTHER | END 2024-04-18 23:59 | disposition home or self-care (01) | LOC: PC 08:00 | PROVIDERS: ATTEND Nurse Practitioner Gerontology | DX: Z51.5 Encounter for palliative care (principal); C34.01 Malignant neoplasm of right main bronchus; C79.51 Secondary malignant neoplasm of bone; J91.8 Pleural effusion in other conditions classified elsewhere; J98.11 Atelectasis; R53.83 Other fatigue; R63.0 Anorexia; Z79.899 Other long term (current) drug therapy; Z87.891 Personal history of nicotine dependence; Z96.643 Presence of artificial hip joint, bilateral; Z96.612 Presence of left artificial shoulder joint; Z96.611 Presence of right artificial shoulder joint; R26.89 Other abnormalities of gait and mobility; Z97.8 Presence of other specified devices; F32.A Depression, unspecified; Z79.891 Long term (current) use of opiate analgesic; K21.9 Gastro-esophageal reflux disease without esophagitis; Z71.89 Other specified counseling; Z66 Do not resuscitate; Z51.89 Encounter for other specified aftercare | CPT/HCPCS: 99350 ==

== ENCOUNTER 2024-04-23 08:00 | Outpatient (CLI) | payer MEDICARE, OTHER | END 2024-04-23 23:59 | disposition home or self-care (01) | LOC: PC 08:00 | PROVIDERS: ATTEND Nurse Practitioner Gerontology | DX: Z51.5 Encounter for palliative care (principal); C34.01 Malignant neoplasm of right main bronchus; J91.0 Malignant pleural effusion; Z79.899 Other long term (current) drug therapy; Z87.891 Personal history of nicotine dependence; Z96.643 Presence of artificial hip joint, bilateral; Z96.612 Presence of left artificial shoulder joint; Z96.611 Presence of right artificial shoulder joint; R26.9 Unspecified abnormalities of gait and mobility; Z71.89 Other specified counseling | CPT/HCPCS: 99213 ==

== ENCOUNTER 2024-05-07 08:00 | Outpatient (CLI) | payer MEDICARE, OTHER | END 2024-05-07 23:59 | disposition home or self-care (01) | LOC: PC 08:00 | PROVIDERS: ATTEND Nurse Practitioner Gerontology | DX: Z51.5 Encounter for palliative care (principal); C34.01 Malignant neoplasm of right main bronchus; C78.2 Secondary malignant neoplasm of pleura; C79.51 Secondary malignant neoplasm of bone; J91.0 Malignant pleural effusion; F32.A Depression, unspecified; R53.0 Neoplastic (malignant) related fatigue | CPT/HCPCS: 99350 ==

== ENCOUNTER 2024-05-24 08:00 | Outpatient (CLI) | payer MEDICARE, OTHER | END 2024-05-24 23:59 | disposition home or self-care (01) | LOC: PC 08:00 | PROVIDERS: ATTEND Nurse Practitioner Gerontology | DX: Z51.5 Encounter for palliative care (principal); C34.01 Malignant neoplasm of right main bronchus; C79.51 Secondary malignant neoplasm of bone; R53.0 Neoplastic (malignant) related fatigue; K59.00 Constipation, unspecified; Z71.89 Other specified counseling; Z97.8 Presence of other specified devices | CPT/HCPCS: 99349 ==

== ENCOUNTER 2024-05-29 12:08 | Outpatient (CLI) | payer MEDICARE, OTHER ==
--- NOTE | 2024-05-31 10:56 | XRAY Report ---
PROCEDURE: Chest 2V INDICATIONS: PLEURAL EFFUSION TECHNIQUE: 2 views of the chest were obtained. COMPARISON: 04/09/2024 FINDINGS: Surgical changes and devices: Bilateral shoulder arthroplasty Lungs and pleura: Moderate right pleural effusion. Bilateral chronic interstitial changes are presen t. Mediastinum: Mediastinal contours appear normal. Heart size is normal. Bones and chest wall: No suspicious bony lesions. Overlying soft tissues appear unremarkable. IMPRESSION: Moderate right pleural effusion with atelectasis and or infiltrate Reviewed by: Jay Jasso MD on 05/31/2024 9:55 AM AKDT Approved by: Jay Jasso MD on 05/31/2024 9:55 AM AKDT Station ID: [id number]
== END 2024-05-29 12:09 | disposition home or self-care (01) ==
LOC: DI 12:08
PROVIDERS: ATTEND Surgery
DX: J90 Pleural effusion, not elsewhere classified (principal); J98.11 Atelectasis

== ENCOUNTER 2024-06-13 13:25 | Outpatient (CLI) | payer MEDICARE, OTHER ==
[2024-06-13] MEDS ORDERED: GADOTERATE MEGLUMINE 7.5 MMOL/15 ML VIAL ONE (13:56)
[2024-06-13] MEDS: GADOTERATE MEGLUMINE 7.5 MMOL/15 ML VIAL IVP ONE (18:32)
--- NOTE | 2024-06-14 11:01 | MRI Report ---
PROCEDURE: Brain W/WO INDICATIONS: LUNG CA CONTRAST: 10ml Clariscan TECHNIQUE: Noncontrast axial T1 spin echo, axial T2 fast spin echo, sagittal and axial FLAIR, coronal T2 fast sp in echo, axial gradient echo, axial diffusion and ADC through the brain. After the administration of contrast, axial and coronal T1 spin echo with fat saturation through the brain. COMPARISON: Correlation is made with prior head CT, 03/08/2019 FINDINGS: Image quality: Excellent. CSF spaces: Basal cisterns are patent. No extra-axial fluid collections. Ventricles are normal in size and shape. Brain: No midline shift. No intracranial bleeds or masses. No abnormal intracranial enhancement. There is cerebral volume loss for age. There is periventricular white matter chronic small vessel is chemic change. The brainstem appears normal. Diffusion-weighted images demonstrate no acute ischemi c insults. No chronic ischemic insults. Normal intravascular flow voids are present. Skull and face: Calvarial marrow is normal in signal. Orbits appear normal. Incidental note is ma de of bilateral lens replacements. Sinuses: Sinuses and mastoids appear clear. IMPRESSION: No masses or abnormal enhancement can be seen. Reviewed by: Ramiro Cowan MD on 06/14/2024 10:00 AM DEN Approved by: Ramiro Cowan MD on 06/14/2024 10:00 AM DEN Station ID: [id number]
== END 2024-06-13 13:26 | disposition home or self-care (01) ==
LOC: DI 13:25
PROVIDERS: ATTEND Internal Medicine Medical Oncology
DX: C34.2 Malignant neoplasm of middle lobe, bronchus or lung (principal)